=== PATIENT | female | born 1940 | race Caucasian/White ===

== ENCOUNTER → 2017-12-23 09:46 | Outpatient (CLI) | payer MEDICARE, OTHER, SELFPAY ==
--- NOTE | 2017-12-23 | DI.MRI.S_ITS ---
PROCEDURE: MR LUMBAR SPINE WO CON INDICATIONS: LUMBAR SPINE PAIN TECHNIQUE: Noncontrast sagittal T1 spin echo and T2 fast echo, sagittal STIR, axial T1 and T2 fast spin echo through the lumbar spine. In cases with scoliosis, additional coronal T2 fast spin echo may be performed. COMPARISON: [facility], CR, XR LUMBAR SPINE WITH OBLIQUES, 12/12/2017, 9:44. [facility], CT, CHEST/ABD/PEL WITH CONTRAST, 08/17/2017, 11:08. [facility], MR, L-SPINE WITHOUT CONTRAST, 03/16/2012, 19:48. FINDINGS: Image quality: Excellent. Alignment and Curvature: There is normal bony alignment. Bone Marrow: T12 inferior endplate compression fracture with associated marrow edema, which appears new since 08/17/17 although may have been present to some degree on the prior radiographs from 12/04/17. Please correlate clinically Spinal Cord: Conus medullaris terminates at the L1 level. Visualized cord demonstrates normal signal and size. Paraspinous Soft Tissues: T2 hyperintense cyst involving the right kidney, as before. T12-L1 central disc protrusion with mild canal narrowing which is slightly progressed. Mild bilateral foraminal stenosis which is unchanged. L1-L2: Broad-based posterior disc bulge and bilateral facet arthropathy. Mild canal narrowing. Mild bilateral foraminal stenoses, no interval change. L2-L3: Broad-based posterior disc bulge and bilateral facet arthropathy. Mild canal stenosis. Mild bilateral foraminal stenoses which are grossly unchanged. L3-L4: Broad-based posterior disc bulge bilateral facet arthropathy, mild canal narrowing. Mild to moderate right greater than left foraminal stenoses with unchanged appearance. L4-L5: Broad-based posterior disc bulge bilateral facet arthropathy. Minimal canal narrowing. Mild bilateral foraminal stenoses, grossly unchanged appearance. L5-S1: Mild broad-based disc bulge bilateral facet arthropathy. No definite canal stenosis. Mild bilateral foraminal stenoses. IMPRESSION: T12 inferior endplate compression fracture, probably acute/subacute in age. No definite change in vertebral body height loss since 12/12/17. Recommend clinical correlation. Slight progression in T12-L1 central canal narrowing. Otherwise, grossly unchanged examination since 03/16/12 as above. Dictated by: Kevin Barclay M.D. on 12/23/2017 at 12:31 Approved by: Kevin Barclay M.D. on 12/23/2017 at 12:46
== END ==
PROVIDERS: Family Provider Family Medicine; PCP Family Medicine; Visit Provider Physical Medicine & Rehabilitation Pain Medicine
DX: S22.089A Unspecified fracture of T11-T12 vertebra, initial encounter for closed fracture (principal); M48.05 Spinal stenosis, thoracolumbar region; M51.26 Other intervertebral disc displacement, lumbar region; M51.27 Other intervertebral disc displacement, lumbosacral region; N28.1 Cyst of kidney, acquired
CPT/HCPCS: 72148

== ENCOUNTER → 2018-03-17 11:12 | Outpatient (CLI) | payer MEDICARE, OTHER, SELFPAY ==
--- NOTE | 2018-03-17 11:21 | DI.CT.S_ITS ---
PROCEDURE: CT ANGIO NECK INDICATIONS: RIGHT CAROTID BRUIT TECHNIQUE: After the administration of intravenous contrast, 1.5 mm axial sections acquired from the aortic arch to the [place] of [place]. Maximum intensity projection (MIP) reformats were then performed. COMPARISON: None. FINDINGS: Image quality: Excellent. Carotid system: The great vessels demonstrate a conventional anatomy as they arise from the aortic arch. The origins of the common carotid arteries appear patent. The common carotid arteries demonstrate normal calibers and courses. There are scattered right carotid bifurcation calcified plaque. No definite significant, greater than 50% stenosis is seen. Remaining internal carotid arteries demonstrate normal caliber and course. Contrast opacification of right paravertebral collaterals Posterior circulation: The origins of the vertebral arteries appear patent. The more superior portions of the vertebral arteries demonstrate normal course and caliber. They join to form a normal appearing basilar artery. Soft tissues: Visualized neck soft tissues demonstrate no suspicious abnormalities. Thyroid gland contains a questionable 5 mm hypodense lesion in the left lobe, although limited evaluation given associated adjacent streak artifact from contrast bolus. Bones: No suspicious bony lesions. Reversal of the normal cervical lordosis and multilevel mid cervical disc degeneration and facet arthropathy. IMPRESSION: No evidence of hemodynamically significant ICA stenosis. Mild right carotid bifurcation atherosclerosis. Possible 5 mm hypodense lesion in the left lobe of the thyroid. Further assessment with dedicated thyroid ultrasound could be performed as clinically warranted. Any quantitative stenosis measurements were performed using the NASCET criteria. Dictated by: Kevin Barclay M.D. on 03/17/2018 at 13:15 Approved by: Kevin Barclay M.D. on 03/17/2018 at 13:24
[2018-03-17 11:42] LABS: BUN Creatinine Ratio 21.4 (6-22); Blood Urea Nitrogen 15 mg/dL (7-17); Calcium 9.5 mg/dL (8.4-10.2); Carbon Dioxide 31 mmol/L (22-32); Chloride 104 mmol/L (98-107); Estimated Glomerular Filt Rate > 60.0 mL/min (>60); Glucose 94 mg/dL (80-110); HEMOLYSIS < 15 (0-50); Potassium 4.2 mmol/L (3.4-5.1); Sodium 145 mmol/L (137-145)
== END ==
PROVIDERS: Family Provider Family Medicine; PCP Family Medicine; Visit Provider Internal Medicine Cardiovascular Disease
DX: I65.21 Occlusion and stenosis of right carotid artery (principal); R09.89 Other specified symptoms and signs involving the circulatory and respiratory systems
CPT/HCPCS: 36415; 70498; 80048; Q9967

== ENCOUNTER → 2018-04-21 17:45 | Outpatient (REF) | payer MEDICARE, OTHER, SELFPAY | LOC: LAB 17:45 | PROVIDERS: Family Provider Family Medicine; PCP Family Medicine; Visit Provider Physician Assistant | DX: Z48.817 Encounter for surgical aftercare following surgery on the skin and subcutaneous tissue (principal); Z48.02 Encounter for removal of sutures | CPT/HCPCS: 87070; 87075; 87205 ==

== ENCOUNTER 2018-05-15 10:12 | Day surgery (SDC) | payer MEDICARE, OTHER, SELFPAY ==
[2018-05-15 10:20] VITALS: BP 140/85; PULSE 92; RESP 16; TEMP 36.2; O2SAT 96; BMI 33.2
[2018-05-15] MEDS: MIDAZOLAM 5 MG/5 ML VIAL IV (10:50)
[2018-05-15] MEDS: fentaNYL 250 MCG/5 ML INJ IV (10:51)
[2018-05-15 11:02] VITALS: BP 151/76; PULSE 82; RESP 14; TEMP 36.5; O2SAT 94
[2018-05-15 11:07] VITALS: BP 149/82; PULSE 93; RESP 13; O2SAT 96
[2018-05-15 11:23] VITALS: BP 136/85; PULSE 79; RESP 15; TEMP 36.6; O2SAT 96
--- NOTE | 2018-05-15 11:23 | SUR.PHASEII ---
TOLERATING JUICE, COFFEE, AND CRACKERS.
--- NOTE | 2018-05-15 11:24 | SUR.PHASEII ---
TOLERATING JUICE, COFFEE, AND CRACKERS
--- NOTE | 2018-05-15 13:49 | OP_ITS ---
DATE OF SERVICE: 05/15/2018 PREOP DIAGNOSIS: History of colon cancer with resection. POSTOP DIAGNOSES: 1. Postoperative right hemicolectomy. 2. Normal colon up to the anastomosis from the anal verge to the right colon anastomosis. SURGEON: Ezio Somers MD DESCRIPTION OF PROCEDURE: The patient was properly identified during surgical pause, given conscious sedation, 100 of fentanyl and 2 of Versed. Flexible fiberoptic colonoscope inserted transanally to the anastomosis. The remaining colon is very healthy. No tumors. No polyps. No diverticulosis. No ulcerations. The areas were photographed. Procedure was very well tolerated. [place] - Shannan/yu doc#: [id number]/job#: [id number] dd: 05/15/2018 11:04:00 dt: 05/15/2018 13:44:00 DICTATING MD/COPIES TO: Ezio Somers MD COPIES MNE: CAM
--- NOTE | 2018-05-16 07:48 | HP_ITS ---
DATE OF SERVICE: 05/15/2018 PREOPERATIVE HISTORY AND PHYSICAL HISTORY OF PRESENT ILLNESS: Coming in for colonoscopy today. A 77-year-old white female patient who has history of colon cancer. Says two-thirds of her colon was removed. She doesn't know if it was the right or left side. She had stage III colon cancer, however. She is coming in for followup colonoscopy. She's asymptomatic. No melena. No hematochezia. OTHER PAST SURGICAL HISTORY: She's had some minor foot surgery. She's also had a right total knee. Denies diabetes, heart disease, or hypertension. MEDICATIONS: Currently takes Celebrex, nonsteroidals, NSAIDs occasionally. She is also on ranitidine, AcipHex, eyedrops, Lipitor, and a baby aspirin daily. REVIEW OF SYSTEMS: System review is really negative for chest pain or unusual shortness of breath. GI is as mentioned in HPI. negative. NEUROLOGIC: No strokes. PHYSICAL EXAMINATION GENERAL: She is alert and oriented. VITAL SIGNS: Her blood pressure is 140/85. Heart rate 92. HEENT: Ears, nose, and throat are normal. NECK: No adenopathy. LUNGS: Distant breath sounds. No rales or wheezes. HEART: Regular rhythm. No murmur. ABDOMEN: Soft. No organomegaly. No masses. RECTAL: Exam will be done at the time of colonoscopy. DIAGNOSIS: History of colon cancer, stage III. [place] - /yogesh/yu doc#: [id number]/job#: [id number] dd: 05/15/2018 10:43:00 dt: 05/15/2018 13:33:00 DICTATING MD/COPIES TO: Ezio Somers MD COPIES MNE: CAM
== END 2018-05-15 11:36 | disposition home or self-care (01) ==
PROVIDERS: Surgery; Family Provider Family Medicine; PCP Family Medicine; Visit Provider Surgery
PROC: 0DJD8ZZ Inspection of Lower Intestinal Tract, Via Natural or Artificial Opening Endoscopic (ICD-10-PCS; CPT 45378; principal; 2018-05-15 11:45)
DX: Z85.038 Personal history of other malignant neoplasm of large intestine (principal); Z90.49 Acquired absence of other specified parts of digestive tract
CPT/HCPCS: G0105; J2250; J3010

== ENCOUNTER → 2018-07-03 08:48 | Outpatient (CLI) | payer MEDICARE, OTHER, SELFPAY ==
--- NOTE | 2018-07-03 | DI.CT.S_ITS ---
PROCEDURE: CT ABDOMEN PELVIS W CON INDICATIONS: ABDOMINAL PAIN,DIARRHEA,HYPERTENSION,ADENOCARCINOM, COLORECTAL CARCINOMA. TECHNIQUE: After the administration of oral and intravenous contrast, 5 mm thick sections acquired from the diaphragms to the symphysis. 5 mm thick coronal and sagittal reformats were performed. For radiation dose reduction, the following was used: automated exposure control, adjustment of mA and/or kV according to patient size. COMPARISON: [facility], CT, CHEST/ABD/PEL WITH CONTRAST, 08/17/2017, 11:08. [facility], CT, ABDOMEN/PELVIS WITH CONTRAST, 09/15/2015, 12:09. [facility], CT, ABDOMEN/PELVIS WITH CONTRAST, 02/21/2015, 10:07. FINDINGS: Image quality: Excellent. ABDOMEN: Lung bases: Lung bases are clear. Heart size is normal. There is a moderate size hiatal hernia behind the heart. Several surgical clips in this area are again noted. Solid organs: Liver is normal in size and enhancement. Gallbladder appears normal. Biliary system is non-dilated. Pancreas enhances normally. Spleen is normal in size and enhancement. No adrenal nodules. Kidneys are normal in size and enhancement, without hydronephrosis. Peritoneum and bowel: Stomach, small bowel, and colon loops are normal in caliber and wall thickness. No free fluid or air. Nodes and vessels: No retroperitoneal or mesenteric adenopathy. Aorta and inferior vena cava are normal in caliber. Miscellaneous: No ventral hernias. PELVIS: Genitourinary: Bladder wall thickness is normal. Miscellaneous: No inguinal hernias or adenopathy. Bones: No suspicious bony lesions. No vertebral body compression fractures. IMPRESSION: There is a reported history of colorectal carcinoma, and no mass lesion involving the visualized colon or adenopathy is seen. No distant metastatic disease is found. Moderate-sized hiatal hernia behind the heart, several surgical clips in the area of the EG junction and immediately below. These were previously present. Overall there is no sign of metastatic disease. Dictated by: Timur Wall M.D. on 07/03/2018 at 13:21 Approved by: Timur Wall M.D. on 07/03/2018 at 13:28
== END ==
PROVIDERS: Family Provider Family Medicine; PCP Family Medicine; Visit Provider Family Medicine
DX: C19 Malignant neoplasm of rectosigmoid junction (principal); R10.9 Unspecified abdominal pain; R19.7 Diarrhea, unspecified; I10 Essential (primary) hypertension; K44.9 Diaphragmatic hernia without obstruction or gangrene
CPT/HCPCS: 74177; Q9967

== ENCOUNTER 2018-08-16 09:04 | Day surgery (SDC) | payer MEDICARE, OTHER, SELFPAY ==
[2018-08-15 10:55] VITALS: BMI 35.3
[2018-08-16] VITALS (8 sets, daily range): BP systolic 109–143; BP diastolic 63–78; PULSE 54–78; RESP 9–20; TEMP 36.1–36.5; O2SAT 2–98; BMI 35.3
[2018-08-16] MEDS: LACTATED RINGERS 1,000 ML 42 ML IV (09:30)
[2018-08-16] MEDS: CEFAZOLIN 2 GM/100 ML FROZ.PIGGY IV (10:00)
--- NOTE | 2018-08-16 10:18 | SUR.OPER ---
Supine on padded OR bed, head on pillow, arms secured on padded arm boards at <90 degrees abduction, legs uncrossed, safety belt at thigh, tape over blanket over lower legs.
[2018-08-16] MEDS: LIDOCAINE 1% W/EPI INJ 20 ML INJ (10:22)
[2018-08-16] MEDS: BUPIVACAINE 0.5% (PF) VIAL 30 ML INJ (10:23)
[2018-08-16] MEDS: fentaNYL 100 MCG/2 ML INJ 50 MCG IV (10:59)
--- NOTE | 2018-08-16 11:01 | PM.PREOP ---
Pre-operative Note Interval Note History & Physical reviewed/Exam performed by Physician: Yes Changes to H&P: No
--- NOTE | 2018-08-16 11:01 | PM.OP.1 ---
Operative Date/Time/Diagnoses Date of procedure: 08/16/18 Time of procedure: 11:01 Pre-op diagnosis: Painful abdominal mass Post-op diagnosis: same Procedure & Clinicians Procedure: Wound exploration with repair of small anterior rectus hernia and removal of a single stitch at the edge of the existing mesh Same procedure as scheduled: Yes Indications: painful abdominal mass Surgeon: Angelia Ramirez Click Yes if Unassisted: Yes Anesthesia Type: General ( Dr. Keith) Operative Notes Findings: 2 cm opening in the anterior oblique aponeurosis. Heaping of the existing hernia mesh at the exact site of the patient's pain and tenderness. It is well incorporated there and there is no recurrent herniation. A single Prolene stitch was removed as well as 1 visible clip. The remainder of the mesh was left in place Closure Type: primary Specimen(s): none sent Estimated Blood Loss (mL): 5 Procedure in detail: After obtaining informed consent, the patient brought to the operating room and placed in supine position on the operating table. Following successful induction of general endotracheal anesthesia, appropriate padding of all bony prominences, and placement of appropriate monitors, the abdomen is prepped and draped in the standard surgical fashion. A time-out was held per SCOAP protocol. Following infiltration with local anesthetic to create a field block, an incision was created directly over the spot marked by the patient as being painful for her. This was carried down through the skin and subcutaneous tissue. At the base of this incision there were 2 findings. at the spot of the mass the patient is feeling, is a heaped up area of scarred in mesh. This is well incorporated from her prior hernia repair. There was a visible Prolene stitch as well as 1 clip that I was able to identify and removed from the site in hopes that it would provide some pain relief if it was the source of nerve entrapment. The mesh was not removed but was left in place. Just lateral to this mesh lump, there was a 1/2 cm opening in the external oblique aponeurosis. This was reapproximated with interrupted Vicryl sutures. A tiny amount of adipose tissue was herniating through this location Prior to the repair. No other abnormalities or changes in the abdominal wall were appreciated. The wound was localized with additional anesthetic. It was then closed in layers with Vicryl and Monocryl suture. All sponge, needle, and instrument counts were correct at the conclusion of the case. The patient was allowed awaken from anesthesia without difficulty and taken to the postanesthesia care unit in good condition. Complications: none Condition: stable Disposition: PACU Plan for aftercare: 1. Discharge to home 2. Follow up with me in my office in 2 weeks. 3. If this does not improve the patient's discomfort we will consider physical therapy.
[2018-08-16] MEDS: OXYCODONE/ACETAMINOPHEN 5/325 TABLET 1 TAB PO (11:04)
--- NOTE | 2018-08-16 11:16 | SUR.PHASEI ---
Pain 3/10, tolerating PO well. VSS stable, report given.
== END 2018-08-16 11:40 | disposition home or self-care (01) ==
PROVIDERS: Family Provider Family Medicine; PCP Family Medicine; Visit Provider Surgery
PROC: (CPT 49560; principal; 2018-08-16 10:45)
DX: K43.0 Incisional hernia with obstruction, without gangrene (principal); Z18.89 Other specified retained foreign body fragments
CPT/HCPCS: 49560; J0690; J1100; J2405; J2704; J3010

== ENCOUNTER → 2018-10-16 09:52 | Outpatient (CLI) | payer MEDICARE, OTHER, SELFPAY ==
[2018-10-16 10:55] LABS: Add Manual Diff / Slide Review NO; Basophils Absolute Auto 0 /uL (0-100); Basophils Percent Auto 0.7 % (0-2); Eosinophils Absolute Auto 0 /uL (0-450); Eosinophils Percent Auto 0.8 % (2-4); Hematocrit 41.8 % (36-46); Lymphocytes Absolute Auto 1900 /uL (1100-4500); Lymphocytes Percent Auto 31.8 % (25-40); Mean Corpuscular HGB Conc 33.5 % (30-36); Mean Corpuscular Hemoglobin 29.9 PG (26-34); Mean Corpuscular Volume 89.1 fL (80-100); Monocytes Absolute Auto 700 /uL (0-900); Monocytes Percent Auto 10.9 % (3-14); Neutrophils Absolute Auto 3300 /uL (1500-7000); Neutrophils Percent Auto 55.8 % (50-75); Platelet Count 334 X10^3/uL (150-400); Red Blood Cell Count 4.69 X10^6/uL (4.0-5.2); Red Cell Distribution Width 13.5 % (11.6-14.8)
[2018-10-16 11:22] LABS: Alanine Aminotransferase 14 IU/L (9-52); Albumin 4.4 g/dL (3.5-5.0); Albumin Globulin Ratio 1.5 (1.0-2.8); Alkaline Phosphatase 103 U/L (38-126); Aspartate Aminotransferase 19 IU/L (14-36); BUN Creatinine Ratio 22.9 (6-22); Bilirubin Total 0.7 mg/dL (0.2-1.3); Blood Urea Nitrogen 16 mg/dL (7-17); Calcium 9.7 mg/dL (8.4-10.2); Carbon Dioxide 29 mmol/L (22-32); Chloride 100 mmol/L (98-107); Estimated Glomerular Filt Rate > 60.0 mL/min (>60); Glucose 97 mg/dL (80-110); HEMOLYSIS < 15 (0-50); Potassium 4.4 mmol/L (3.4-5.1); Sodium 139 mmol/L (137-145); Total Protein 7.4 g/dL (6.3-8.2)
[2018-10-16 11:51] LABS: Carcinoembryonic Antigen 0.6 ng/mL (0.1-3.0)
== END ==
PROVIDERS: Family Provider Family Medicine; PCP Family Medicine; Visit Provider Nurse Practitioner Gerontology
DX: D04.61 Carcinoma in situ of skin of right upper limb, including shoulder (principal); D04.4 Carcinoma in situ of skin of scalp and neck; R10.11 Right upper quadrant pain; K52.9 Noninfective gastroenteritis and colitis, unspecified; M48.54XA Collapsed vertebra, not elsewhere classified, thoracic region, initial encounter for fracture; I10 Essential (primary) hypertension; E78.00 Pure hypercholesterolemia, unspecified; K21.9 Gastro-esophageal reflux disease without esophagitis; Z85.038 Personal history of other malignant neoplasm of large intestine; Z85.3 Personal history of malignant neoplasm of breast
CPT/HCPCS: 36415; 80053; 82378; 85025

== ENCOUNTER → 2018-11-22 10:04 | Outpatient (CLI) | payer MEDICARE, OTHER, SELFPAY ==
--- NOTE | 2018-11-22 | DI.US.S_ITS ---
PROCEDURE: US CAROTID DOPPLER BI INDICATIONS: OCCLUSION AND STENOSIS OF RT CAROTID ARTERY TECHNIQUE: Color and pulse Doppler interrogation was performed of both carotid systems, with image documentation and velocity measurements. COMPARISON: [facility], US, US CAROTID BILATERAL, 04/04/2018, 9:12. FINDINGS: Stenosis calculations are based on SRU (Society of Radiologists in Ultrasound) criteria. Right side: Brachial blood pressure: 103/67 mm Hg. Common carotid artery peak systolic velocity: 51 cm/sec. Internal carotid artery peak systolic velocity: 144 cm/sec. Internal carotid artery end diastolic velocity: 41 cm/sec. External carotid artery peak systolic velocity: 103 cm/sec. ICA/CCA peak systolic ratio: 2.8. Hsieh scale imaging description: Mild scattered plaque. Percent internal carotid artery stenosis: 50-69% stenosis. Vertebral artery: Flow direction is antegrade. Left side: Brachial blood pressure: 107/65 mm Hg. Common carotid artery peak systolic velocity: 71 cm/sec. Internal carotid artery peak systolic velocity: 106 cm/sec. Internal carotid artery end diastolic velocity: 36 cm/sec. External carotid artery peak systolic velocity: 108 cm/sec. ICA/CCA peak systolic ratio: 1.5. Hsieh scale imaging description: Mild scattered plaque. Percent internal carotid artery stenosis: Facet 50%. Vertebral artery: Flow direction is antegrade. IMPRESSION: 1. 50-69% right internal carotid artery stenosis which appears decreased from prior examination. 2. Less than 50% stable left internal carotid artery stenosis. Dictated by: Bakari Tellez A Interpreted: Chanel Dunaway MD on 11/23/2018 at 15:30 Approved by: Chanel Dunaway M.D. on 11/23/2018 at 17:17
== END ==
PROVIDERS: Family Provider Family Medicine; PCP Family Medicine; Visit Provider Psychiatry & Neurology Neurology
DX: I65.23 Occlusion and stenosis of bilateral carotid arteries (principal)
CPT/HCPCS: 93880

== ENCOUNTER → 2019-07-03 10:07 | Outpatient (CLI) | payer MEDICARE, OTHER, SELFPAY ==
--- NOTE | 2019-07-03 | DI.US.S_ITS ---
PROCEDURE: US CAROTID DOPPLER BI INDICATIONS: OCCLUSION AND STENOSIS OF CAROTID ARTERY TECHNIQUE: Color and pulse Doppler interrogation was performed of both carotid systems, with image documentation and velocity measurements. COMPARISON: [facility], , CAROTID DOPPLER BI, 11/22/2018, 10:41. FINDINGS: Stenosis calculations are based on SRU (Society of Radiologists in Ultrasound) criteria. Right side: Brachial blood pressure: 150/73 mm Hg. Common carotid artery peak systolic velocity: 80 cm/sec. Internal carotid artery peak systolic velocity: 330 cm/sec. Internal carotid artery end diastolic velocity: 111 cm/sec. External carotid artery peak systolic velocity: 89 cm/sec. ICA/CCA peak systolic ratio: 4.19. Hsieh scale imaging description: Calcified plaque at the bifurcation Percent internal carotid artery stenosis: 70% to near occlusion. Vertebral artery: Flow direction is antegrade. Left side: Brachial blood pressure: 109/61 mm Hg. Common carotid artery peak systolic velocity: 88 cm/sec. Internal carotid artery peak systolic velocity: 104 cm/sec. Internal carotid artery end diastolic velocity: 37 cm/sec. External carotid artery peak systolic velocity: 98 cm/sec. ICA/CCA peak systolic ratio: 1.18. Hsieh scale imaging description: Calcified plaque at the distal common carotid bifurcation Percent internal carotid artery stenosis: Less than 50%. Vertebral artery: Flow direction is antegrade. IMPRESSION: 70% to near occlusion high-grade stenosis of the right ICA, progressed since the prior study from 11/22/18. Less than 50% left ICA stenosis, as before Dictated by: Kevin Barclay M.D. on 07/03/2019 at 17:38 Approved by: Kevin Barclay M.D. on 07/03/2019 at 17:41
[2019-07-03 11:16] LABS: Add Manual Diff / Slide Review NO; Basophils Absolute Auto 0 /uL (0-100); Basophils Percent Auto 0.9 % (0-2); Eosinophils Absolute Auto 100 /uL (0-450); Eosinophils Percent Auto 1.6 % (2-4); Hematocrit 40.3 % (36-46); Hemoglobin 13.6 g/dL (12.0-16.0); Lymphocytes Absolute Auto 1400 /uL (1100-4500); Lymphocytes Percent Auto 27.6 % (25-40); Mean Corpuscular HGB Conc 33.8 % (30-36); Mean Corpuscular Hemoglobin 30.5 PG (26-34); Mean Corpuscular Volume 90.3 fL (80-100); Monocytes Absolute Auto 400 /uL (0-900); Monocytes Percent Auto 7.5 % (3-14); Neutrophils Absolute Auto 3100 /uL (1500-7000); Neutrophils Percent Auto 62.4 % (50-75); Platelet Count 296 X10^3/uL (150-400); Red Blood Cell Count 4.46 X10^6/uL (4.0-5.2); Red Cell Distribution Width 13.3 % (11.6-14.8)
[2019-07-03 11:24] LABS: Alanine Aminotransferase 18 IU/L (<35); Albumin 4.3 g/dL (3.5-5.0); Albumin Globulin Ratio 1.5 (1.0-2.8); Alkaline Phosphatase 101 U/L (38-126); Aspartate Aminotransferase 27 IU/L (14-36); BUN Creatinine Ratio 15.7 (6-22); Bilirubin Total 0.7 mg/dL (0.2-1.3); Blood Urea Nitrogen 11 mg/dL (7-17); Calcium 9.4 mg/dL (8.4-10.2); Carbon Dioxide 28 mmol/L (22-32); Chloride 101 mmol/L (98-107); Cholesterol 185 mg/dL (140-199); Estimated Glomerular Filt Rate > 60.0 mL/min (>60); Globulin 2.9 g/dL (1.7-4.1); Glucose 102 mg/dL (80-110); HDL Cholesterol 59 mg/dL (40-60); HEMOLYSIS < 15 (0-50); LDL Cholesterol Calculated 102 mg/dL (<100); Sodium 138 mmol/L (137-145); Total Protein 7.2 g/dL (6.3-8.2); Triglycerides 119 mg/dL (35-150)
[2019-07-03 12:14] LABS: TSH w/ Reflex to FT4 2.53 uIU/mL (0.47-4.68)
== END ==
PROVIDERS: Family Provider Psychiatry & Neurology Neurology; PCP Family Medicine; Visit Provider Family Medicine
DX: I65.23 Occlusion and stenosis of bilateral carotid arteries (principal); K21.9 Gastro-esophageal reflux disease without esophagitis; D50.9 Iron deficiency anemia, unspecified; R10.9 Unspecified abdominal pain; I10 Essential (primary) hypertension; E78.5 Hyperlipidemia, unspecified
CPT/HCPCS: 36415; 80053; 80061; 84443; 85025; 93880

== ENCOUNTER → 2020-05-13 13:48 | Outpatient (CLI) | payer MEDICARE, OTHER, SELFPAY ==
--- NOTE | 2020-05-13 13:50 | DI.US.S_ITS ---
LIMITED ULTRASOUND OF LEFT BREAST AND AXILLA: 05/13/2020 CLINICAL: Palpable left breast lump. Comparison is made to exams dated: 05/13/2020 mammogram - [facility], 08/12/2018 mammogram, 08/08/2017 mammogram, 06/24/2016 mammogram - [facility], 12/31/2015 mammogram - [facility], and 07/03/2015 mammogram - [facility]. Color flow and real-time ultrasound of the left breast 4 o'clock, 10 o'clock, and axilla regions were performed on the areas of interest. There is a 0.6 cm x 0.4 cm x 0.4 cm oval mass with an indistinct margin in the left breast at 10 o'clock anterior depth. This oval mass is hypoechoic and hyperechoic but of mixed echogenicity with posterior acoustic shadowing. This correlates as palpated. There are related calcifications. Color flow imaging demonstrates that there is no vascularity present. There also is a benign irregular post-surgical scar with an indistinct margin in the left breast at 4 o'clock posterior depth. This irregular post-surgical scar is hypoechoic with posterior acoustic shadowing and demonstrates linear extension to the skin. This correlates with mammography findings. Color flow imaging demonstrates that there is no vascularity present. No enlarged lymph nodes identified in the left axilla. IMPRESSION: SUSPICIOUS OF MALIGNANCY The 0.6 cm x 0.4 cm x 0.4 cm oval mass in the left breast at 10 o'clock anterior depth is suspicious of malignancy. An ultrasound guided biopsy is recommended. The irregular post-surgical scar in the left breast at 4 o'clock posterior depth is benign. The findings were discussed with and the results were reviewed with the patient at the conclusion of the study by Dr. Lopez. This exam was interpreted at Station ID: [id number]. Electronically Signed By: Nick aguirre/:05/13/2020 16:09:20 letter sent: Biopsy Required Ultrasound BI-RADS: 4 Suspicious for malignancy
--- NOTE | 2020-05-13 13:50 | DI.MG.S_ITS ---
BILATERAL DIGITAL DIAGNOSTIC MAMMOGRAM 3D/2D POST LUMPECTOMY: 05/13/2020 CLINICAL: Left breast lump. Comparison is made to exams dated: 08/12/2018 mammogram, 08/08/2017 mammogram, and 06/24/2016 mammogram - [facility]. There are scattered fibroglandular elements in both breasts. There is a new oval equal density asymmetry with an obscured and indistinct margin in the left breast at 11 o'clock in the retroareolar region. This correlates as palpated. There also is an irregular equal density asymmetry with an indistinct margin in the left breast at 3 o'clock posterior depth. This correlates with surgery. There is architectural distortion, a post-surgical scar, and trabecular thickening associated with the asymmetry. No other significant masses, calcifications, or other findings are seen in either breast. IMPRESSION: INCOMPLETE: NEEDS ADDITIONAL IMAGING EVALUATION The new oval equal density asymmetry in the left breast at 11 o'clock in the retroareolar region is indeterminate. An ultrasound is recommended. The irregular equal density asymmetry in the left breast at 3 o'clock posterior depth likely represents a post-surgical scar and is indeterminate. An ultrasound is recommended. Ultrasound will be performed immediately following the current exam. This exam was interpreted at Station ID: [id number]. NOTE: For mammograms, a report in lay terms will be sent to the patient. Approximately 15% of breast malignancies will not be visualized mammographically. In the management of a palpable breast mass, a negative mammogram must not discourage biopsy of a clinically suspicious lesion. Electronically Signed By: Nick Ludwig M.D. ddp/:05/13/2020 15:50:51 ACR BI-RADS Category 0: Incomplete [id number]
== END ==
PROVIDERS: Family Provider Psychiatry & Neurology Neurology; PCP Family Medicine; Referring Provider Internal Medicine Hematology & Oncology; Visit Provider Internal Medicine Hematology & Oncology
DX: R92.8 Other abnormal and inconclusive findings on diagnostic imaging of breast (principal); N63.22 Unspecified lump in the left breast, upper inner quadrant; L90.5 Scar conditions and fibrosis of skin; Z85.3 Personal history of malignant neoplasm of breast
CPT/HCPCS: 76642; 77066; G0279

== ENCOUNTER → 2020-05-27 08:52 | Outpatient (CLI) | payer MEDICARE, OTHER, SELFPAY ==
--- NOTE | 2020-05-27 | PATH_ITS ---
[facility] Accession Number: [id number] . 01 Material submitted: . breast - LEFT BREAST MASS . 02 Diagnosis: Left Breast, Mass, Core Needle Biopsies: 1. Negative for atypical ductal hyperplasia, in situ, or invasive carcinoma. 2. Benign breast tissue with fibrosis, foreign body reaction and reactive changes. Please see comment. 3. Microcalcifications present in association with nonneoplastic tissue. MRV 05/29/2020 1350 Local . 02 Comment: As part of routine quality control lab tech, this case was also reviewed by Dr. Sarkar, who agrees with the interpretation. These reactive features could be compatible with resolving fat necrosis, or changes related to prior procedure or treatment. . 02 Electronically signed: . Indira Tilley MD, Pathologist NPI- [id number] . 01 Gross description: . Received in one formalin-filled container, labeled with the patient's name and designated left breast mass, are three yellow-lisa to lisa-conte, cylindrical-shaped portions of tissue which range in size from 0.7 x 0.1 x 0.1 cm to 1.2 x 0.2 x 0.2 cm. The specimen is entirely submitted in one cassette. Collection date per container: 05/27/20. Possible collection time per requisition: 10:02. Possible total fixation time: Approximately 17 hours. ([id number]) /FRAllison 05/28/2020 0226 Local . 02 Pathologist provided ICD-10: N63.20 . 02 CPT . 065251 Performed at: 01 [facility] [address] [place] [address] [id number] MD Nick Ahumada MD Phone: [phone] Performed at: 02 [facility] [place] [address] [place] [address] [id number] MD Indira Tilley MD Phone: [phone]
--- NOTE | 2020-05-27 | DI.US.S_ITS ---
PROCEDURE: US BREAST NDL CORE BIOPSY LT COMPARISON: None. INDICATIONS: LEFT BREAST MASS FINDINGS: IMPRESSION: Dictated by: Keyanna Perez MD, PhD on 05/28/2020 at 15:56 Approved by: Keyanna Perez MD, PhD on 05/28/2020 at 15:57
--- NOTE | 2020-05-27 | DI.MG.S_ITS ---
UNILATERAL LEFT DIGITAL DIAGNOSTIC MAMMOGRAM POST LUMPECTOMY POST-EXCISIONAL BIOPSY: 05/27/2020 CLINICAL: Left breast mass. Comparison is made to exams dated: 05/13/2020 mammogram - [facility], 08/12/2018 mammogram, and 08/08/2017 mammogram - [facility]. There are scattered fibroglandular elements in left breast. There is a marker clip in the appropriate position in the left breast at 11 o'clock anterior depth. This marker clip placement is at the biopsy site. IMPRESSION: POST PROCEDURE MAMMOGRAM FOR MARKER PLACEMENT There was a successful marker clip placement in the left breast anterior depth. This exam was interpreted at Station ID: [id number]. NOTE: For mammograms, a report in lay terms will be sent to the patient. Approximately 15% of breast malignancies will not be visualized mammographically. In the management of a palpable breast mass, a negative mammogram must not discourage biopsy of a clinically suspicious lesion. Electronically Signed By: Keyanna ramírez/kiara:05/27/2020 10:41:28 ACR BI-RADS Category Post-procedure mammogram for marker placement
--- NOTE | 2020-05-27 09:13 | DI.US.S_ITS ---
Patient Name: RAMO LOUIS date: 1940 Sex: F Date: 05/27/2020 10:03 At the request of: MARNIE PERKINS Procedure: US breast ndl core biopsy LT ULTRASOUND GUIDED BIOPSY LEFT BREAST WITH MARKING DEVICE INSERTED: 05/27/2020 CLINICAL: Left breast mass. PATIENT CONSENT: Risks (minor bleeding, infection, vasovagal reaction and repeat procedure), benefits and alternatives were explained to the patient and written informed consent was obtained. Correlation is made to exams dated: 05/13/2020 ultrasound, 05/13/2020 mammogram - [facility], 08/12/2018 mammogram, 08/08/2017 mammogram, 06/24/2016 mammogram - [facility], and 12/31/2015 mammogram - [facility]. An ultrasound guided biopsy using real-time ultrasound was performed for the mass located in the left breast at 10 o'clock anterior depth. The skin was prepped in the usual manner. A 6 gauge biopsy needle was placed adjacent to the abnormality under ultrasound guidance. Once the needle was documented to be in the correct location, three specimens were obtained using an Achieve automated firing device. A Celero clip was inserted into the biopsy cavity. Post procedure imaging demonstrates the location device at the targeted area. The specimens were sent to the laboratory for pathological analysis. IMPRESSION: ULTRASOUND GUIDED BIOPSY BENIGN Ultrasound guided biopsy of the mass in the left breast at 10 o'clock anterior depth was successful. Pathology indicates benign fibrosis, foreign body reaction, reactive changes compatible with resolving fat necrosis, or changes related to prior procedure or treatment. Microcalcifications are present. Pathology results are concordant with imaging findings. Recommend clinical follow up for persistent or worsening symptoms, or development of any clinically suspicious findings. Recommend screening mammogram in one year. This exam was interpreted at Station ID: [id number]. Keyanna Rowell M.D. [facility],[place]/:06/10/2020 07:29:15
== END ==
PROVIDERS: Family Provider Psychiatry & Neurology Neurology; PCP Family Medicine; Referring Provider Internal Medicine Hematology & Oncology; Visit Provider Internal Medicine Hematology & Oncology
DX: N60.32 Fibrosclerosis of left breast (principal); Z85.3 Personal history of malignant neoplasm of breast
CPT/HCPCS: 19083; 77065

== ENCOUNTER → 2021-09-23 13:06 | Outpatient (CLI) | payer MEDICARE, OTHER, SELFPAY ==
--- NOTE | 2021-09-23 | DI.MRI.S_ITS ---
PROCEDURE: MR SHOULDER LT WO CON INDICATIONS: LT SHOULDER OSTEOARTHRITIS. PAIN TECHNIQUE: Noncontrast oblique coronal T2 fast spin echo with fat saturation, oblique sagittal T1 spin echo and T2 fast spin echo with fat saturation, axial T1 spin echo and T2 fast spin echo with fat saturation through the shoulder. COMPARISON: [facility], MR, MR SHOULDER RT WO CON, 09/23/2021, 13:22. FINDINGS: Image quality: Excellent. Rotator cuff: Moderate supraspinatus tendinopathy with small partial, articular surface and interstitial tears. Mild to moderate infraspinatus tendinopathy with interstitial tear. Mild to moderate subscapularis tendinopathy with partial, articular surface tear. Sagittal images demonstrate grade 2 supraspinatus muscle atrophy. Bones and bursae: No evidence of fracture. T2 hyperintense/T1 hypointense signal is seen within the glenoid, compatible with fibrocystic change. Signal heterogeneity and thinning of the hyaline cartilage. Mild acromioclavicular joint degeneration with T2 hyperintense signal within the articulation. No os acromiale. Small subacromial-subdeltoid bursal fluid is present. Capsule and soft tissues: Labrum deficiency of the posterior labrum, which may reflect degenerative change/tear. The long head of the biceps tendon demonstrates normal location and morphology. A 3.2 x 7.8 mm intra-articular body is seen in the superior subscapular recess. The coracohumeral ligament is normal in thickness. IMPRESSION: 1. Moderate supraspinatus tendinopathy with small partial, articular surface and interstitial tears. 2. Mild to moderate infraspinatus tendinopathy with interstitial tear. 3. Mild to moderate subscapularis tendinopathy with partial, articular surface tear. 4. Grade 2 atrophy of the supraspinatus muscle. 5. Mild subacromial/subdeltoid bursitis. 6. Fibrocystic change of the glenoid. 7. Mild AC joint degeneration. 8. Intra-articular body within the superior subscapular recess. Dictated by: Kike Herring M.D. on 09/23/2021 at 15:45 Approved by: Kike Herring M.D. on 09/23/2021 at 15:54
--- NOTE | 2021-09-23 | DI.MRI.S_ITS ---
PROCEDURE: MR SHOULDER RT WO CON INDICATIONS: LT SHOULDER OSTEOARTHRITIS;RT SHOULDER CUFF TEAR TECHNIQUE: Noncontrast oblique coronal T2 fast spin echo with fat saturation, oblique sagittal T1 spin echo and T2 fast spin echo with fat saturation, axial T1 spin echo and T2 fast spin echo with fat saturation through the shoulder. COMPARISON: [facility], MR, SHOULDER WITHOUT CONTRAST, 07/21/2012, 8:50. FINDINGS: Image quality: Some images are degraded by motion artifact. Rotator cuff: Full thickness of the supraspinatus tendon, measuring approximately 2.6 x 2.9 cm. Infraspinatus tendinopathy with interstitial and partial articular surface tears. Subscapularis tendinopathy without evidence of tear. Increased atrophy of the supraspinatus muscle, likely reflecting grade 2/3 atrophy. Bones and bursae: No evidence of fracture. 6.5 x 5.1 cm T2 hyperintense/T1 hypointense signal in the posterior glenoid, compatible with fibrocystic change. Mild to moderate acromioclavicular joint degeneration. No os acromiale. Subacromial-subdeltoid fluid, which may be related to the aforementioned rotator cuff tear. Capsule and soft tissues: Labrum appears intact. The long head of the biceps tendon demonstrates normal location and morphology. Glenohumeral joint effusion which extends into the superior subscapularis recess. The coracohumeral ligament is normal in thickness. IMPRESSION: 1. Full-thickness supraspinatus tendon tear as detailed above. 2. Infraspinatus tendinopathy with interstitial and partial articular surface tears. 3. Subscapularis tendinopathy without evidence of tear. 4. Interval increased atrophy of the supraspinatus muscle. 5. Glenohumeral joint effusion which extends into the superior subscapular recess. Dictated by: Kike Herring M.D. on 09/23/2021 at 15:21 Approved by: Kike Herring M.D. on 09/23/2021 at 15:30
== END ==
PROVIDERS: Family Provider Psychiatry & Neurology Neurology; PCP Family Medicine; Referring Provider Family Medicine; Visit Provider Family Medicine
DX: M75.121 Complete rotator cuff tear or rupture of right shoulder, not specified as traumatic (principal); M19.011 Primary osteoarthritis, right shoulder; M75.112 Incomplete rotator cuff tear or rupture of left shoulder, not specified as traumatic; M19.012 Primary osteoarthritis, left shoulder; M75.52 Bursitis of left shoulder
CPT/HCPCS: 73221

== ENCOUNTER → 2021-10-14 11:10 | Outpatient (CLI) | payer MEDICARE, OTHER, SELFPAY ==
[2021-10-14 12:40] LABS: Add Manual Diff / Slide Review NO; Basophils Absolute Auto 0 /uL (0-100); Basophils Percent Auto 0.6 % (0-2); Eosinophils Absolute Auto 100 /uL (0-450); Eosinophils Percent Auto 1.6 % (2-4); Hematocrit 40.6 % (36-46); Hemoglobin 13.5 g/dL (12.0-16.0); Lymphocytes Absolute Auto 2300 /uL (1100-4500); Lymphocytes Percent Auto 35.3 % (25-40); Mean Corpuscular HGB Conc 33.2 % (30-36); Mean Corpuscular Hemoglobin 28.9 PG (26-34); Mean Corpuscular Volume 87.2 fL (80-100); Monocytes Absolute Auto 600 /uL (0-900); Monocytes Percent Auto 9.4 % (3-14); Neutrophils Absolute Auto 3500 /uL (1500-7000); Neutrophils Percent Auto 53.1 % (50-75); Platelet Count 351 X10^3/uL (150-400); Red Blood Cell Count 4.65 X10^6/uL (4.0-5.2); Red Cell Distribution Width 13.6 % (11.6-14.8); White Blood Cell Count 6.6 X10^3/uL (4.5-11.0)
[2021-10-14 12:50] LABS: BUN Creatinine Ratio 19.5 (6-22); Blood Urea Nitrogen 17 mg/dL (7-17); Calcium 9.9 mg/dL (8.4-10.2); Carbon Dioxide 23 mmol/L (22-32); Chloride 107 mmol/L (98-107); Estimated Glomerular Filt Rate > 60 mL/min (>60); Glucose 61 mg/dL (80-110); HEMOLYSIS < 15 (0-50); Potassium 4.5 mmol/L (3.4-5.1); Sodium 139 mmol/L (137-145)
[2021-10-14 12:53] LABS: Hemoglobin A1C% w Est Avg Glu 5.5 % (4.0-6.0)
[2021-10-14 13:00] LABS: Appearance Urine UA CLOUDY; Bilirubin Urine UA 2+ (NEGATIVE); Color Urine UA YELLOW; Glucose Urine UA TRACE g/dL (Negative); Ketones Urine UA 1+ (NEGATIVE); Leukocyte Esterase Urine UA TRACE (NEGATIVE); Nitrite Urine UA NEGATIVE (Negative); Occult Blood Urine UA NEGATIVE (Negative); Protein Urine UA 2+ (Negative); Specific Gravity Urine UA >=1.030 (1.000-1.035)
[2021-10-14 13:16] LABS: Amorphous Sediment Urine 1+; Bacteria Urine Few (2-10); Culture Indicated Urine Specimen Cultured; Ictotest Urine Negative (Negative); Mucus Urine 1+ (Negative); RBC Urine None Seen (0-5/HPF); Squamous Epithelial Cell Urine 5-10 /HPF (0-5/HPF); WBC Urine 1-5/HPF (0-5/HPF)
== END ==
PROVIDERS: Family Provider Psychiatry & Neurology Neurology; PCP Family Medicine; Referring Provider Orthopaedic Surgery; Visit Provider Orthopaedic Surgery
DX: Z01.818 Encounter for other preprocedural examination (principal); R73.9 Hyperglycemia, unspecified; Z01.812 Encounter for preprocedural laboratory examination; N39.0 Urinary tract infection, site not specified
CPT/HCPCS: 36415; 80048; 81001; 83036; 85025; 87086; 93005

== ENCOUNTER → 2021-10-26 10:04 | Outpatient (CLI) | payer MEDICARE, OTHER, SELFPAY ==
[2021-10-26 13:34] LABS: COVID19 -Nasal RAPID Negative (Negative)
== END ==
PROVIDERS: Family Provider Psychiatry & Neurology Neurology; PCP Family Medicine; Visit Provider Family Medicine Sleep Medicine
DX: Z20.822 Contact with and (suspected) exposure to COVID-19 (principal)
CPT/HCPCS: 87635; C9803

== ENCOUNTER 2021-10-28 10:35 | Inpatient (IN) | payer MEDICARE, OTHER, SELFPAY ==
[2021-10-26 11:35] VITALS: BMI 30.2
[2021-10-28] VITALS (13 sets, daily range): BP systolic 90–136; BP diastolic 44–81; PULSE 84–123; RESP 12–22; TEMP 35.8–36.6; O2SAT 90–96; BMI 30.2
--- NOTE | 2021-10-28 06:00 | DI.RAD.S_ITS ---
PROCEDURE: XR SHOULDER RT 1V INDICATIONS: prosthesis placement TECHNIQUE: 1 view of the shoulder was acquired. COMPARISON: [facility], CR, XR SHOULDER 2+ VIEWS BILATERAL, 10/01/2021, 12:13. FINDINGS: Bones: On this postoperative study, right shoulder arthroplasty hardware has been placed. No significant postoperative complication can be seen. Soft tissues: Soft tissue postoperative changes are seen. The visualized lung demonstrates an unremarkable appearance. IMPRESSION: Normal postoperative examination. Dictated by: Michael Stahl M.D. on 10/28/2021 at 16:29 Approved by: Michael Stahl M.D. on 10/28/2021 at 16:30
[2021-10-28] MEDS: ACETAMINOPHEN 325 MG TABLET 975 MG PO (10:58)
[2021-10-28] MEDS: PREGABALIN 75 MG CAPSULE PO (10:59)
[2021-10-28] MEDS: LACTATED RINGERS 1,000 ML 42 ML IV ×2 (11:01→15:15)
--- NOTE | 2021-10-28 12:35 | SUR.PREOP ---
Patient sleeping, resp unlabored, even and regular.
--- NOTE | 2021-10-28 13:27 | PM.PREOP ---
Pre-operative Note COVID-19 COVID-19 status: Negative Result date/Date tested (Pos, Neg/Pending): 10/26/21 Interval Note History & Physical reviewed/Exam performed by Physician: Yes Changes to H&P: No
[2021-10-28] MEDS: CEFAZOLIN 2 GM/20 ML SYRINGE IV (15:00)
[2021-10-28] MEDS: TRANEXAMIC ACID 1,000 MG VIAL 1000 MG INJ ×2 (15:02→16:05)
--- NOTE | 2021-10-28 15:29 | SUR.OPER ---
Beach chair with Yamilet/Annette shoulder positioner. Lower body on padded OR bed. Head in foam padded head cradle, secured with straps. Non-operative arm secured <90 degrees abduction. Pillow under knees. Safety belt at thigh. Cloth tape over blanket over lower legs.
[2021-10-28] MEDS: BUPIVACAINE 0.5% W/ EPI (PF) 30 ML VIAL INJ (15:34)
--- NOTE | 2021-10-28 16:37 | PM.OP.1 ---
Operative Date/Time/Diagnoses Date of procedure: 10/28/21 Time of procedure: 16:37 Pre-op diagnosis: Right shoulder massive, irreparable, chronic rotator cuff tear Post-op diagnosis: same Procedure & Clinicians Procedure: Right reverse total shoulder replacement Same procedure as scheduled: Yes Indications: The patient is had chronic right shoulder pain unresponsive to nonoperative therapies. Radiographic studies have revealed changes consistent with a massive rotator cuff tear and arthritis. They have elected to proceed with reverse total shoulder replacement after discussion of the risks benefits and alternatives. Risks discussed included but were not limited to: Failure to improve, instability, infection, nerve damage, deep venous thrombosis, pulmonary embolism, stroke, coma, myocardial infarction and . Surgeon: Oj Lawton [employer] Trainer: Lamar Salvador Click Yes if Unassisted: No Anesthesia Type: General, Peripheral nerve block and Local Operative Notes Findings: Massive tear of supraspinatus and infraspinatus. Very small bones. Mild arthritic change. Closure Type: primary Specimen(s): none sent Prosthetic devices, grafts, tissues, transplants, or devices: Implants used in this procedure manufactured by the [employer] and included an RSP reverse total shoulder system with a 30 mm screw length glenoid base plate, 2 locking screws measuring 18 and 30 mm in length, a-4 x 32 mm glenoid head with retaining screw. On the humeral side there was a 10 mm small shell humeral stem with a 32 mm neutral E +polyethylene small socket insert. Applied: implant(s) Estimated Blood Loss (mL): 200 Blood products transfused: none Procedure in detail: The patient was seen in the preoperative area where they identified the right shoulder as the operative site and this was marked with my initials. They received preoperative antibiotics and underwent the induction of an interscalene block. They were taken to the operating room and placed on the operating room table in a supine position with the underwent the induction of a general anesthetic. A full ?time-out? was performed. They were then repositioned in the ?beach chair? position using a dedicated positioner. All pressure points were well padded. The knees were slightly bent to prevent tension on the sciatic nerves. The right arm was prepared from the fingertips to the base of the neck with ChloraPrep in the usual fashion and draped through sterile drapes. An approximately 12 cm incision was created starting at the clavicle just above the coracoid and going to the deltoid insertion. The deltopectoral interval was used to access the shoulder taking the vein to the medial side. The vein was unfortunately torn during retraction to access the glenoid and was ligated. The upper 1 cm of the pectoralis major was released. The biceps tendon was identified and used as a guide to releasing the remaining subscapularis. The biceps itself was tenodesed over the pectoralis tendon using a suture. The subscapularis was tagged for later repair. The shoulder was dislocated and a proximal humeral osteotomy performed using an extramedullary guide. A proximal humeral protector was then placed. Retractors were placed access the glenoid. A 360 degree release was performed of the remaining subscapularis with care being taken to protect the axillary nerve. The soft tissues were removed circumferentially around the glenoid. The guide was used to drill the guide hole in the center of the inferior glenoid. The tap was placed and used as a guide for the reamer. The tap was then removed and the glenoid base plate inserted. The peripheral locking screws were then placed through the appropriate guide. The anterior and posterior screws were not placed due to the diminutive size of the patient as there was minimal bone stock for the screws to access. The superior and inferior screws had good purchase. A trial glenoid head was applied. We then turned our attention to the humerus. The proximal humeral protector was removed. Cylindrical reamers were used to size the canal. Broaching was then performed beginning with a small broach and working up until a line to line fit with the reamer was obtained. The guide for the proximal metaphyseal reamer was then applied and the metaphysis was reamed appropriately. The trial metaphyseal portion of the body was then applied to the broach. Trial reductions were performed and the size of the glenoid head and the cup were optimized. Stability was checked in maximal internal and external rotation and range of motion was checked to allow access to the top of the head, internal rotation to an excess of 50? in the ?scarecrow position? and the ability to reach the groin. The appropriate final prosthetic components were then opened. The glenoid head was impacted into position and checked for rotational and axial stability before placing the set screw. The humeral prosthetic was then impacted into position. The humeral cup was placed. The joint was relocated and irrigated. The subscapularis was repaired to the lateral remnant with #2 Ethibond [id number] sutures. The deltopectoral interval was reapproximated with 0 Vicryl. Subcutaneous layer was closed with interrupted 3-0 Vicryl and skin with a running 3 0 V lock suture. Subcutaneous tissues were then infiltrated with 0.5% Marcaine for postoperative pain control. An Aquacel Ag dressing was applied and the patient's arm was placed in a sling. The patient was then transferred to the recovery room in good condition having tolerated the procedure well. Complications: none Post-operative Condition: stable Disposition: PACU Plan for aftercare: The patient will be allowed to do pendulum exercises and use her arm in front of her body with lifting no more than 1-2 lb. Range of motion will be initially restricted to 90? forward flexion, 0? external rotation, 0? abduction and internal rotation to the body. If she is stable for discharge home she will be discharged tomorrow morning.
--- NOTE | 2021-10-28 16:50 | SUR.PREOP ---
Block start time 1410. Monitoring initiated and maintained throughout procedure. No Oxygen and medications per anesthesiologist. Patient remained stable throughout procedure, no adverse reactions noted. Block end time 1436Pt left for OR in stable condition.
--- NOTE | 2021-10-28 17:38 | SUR.PHASEI ---
IS teaching with fair return demonstration with reinforce teaching
[2021-10-28] MEDS: LACTATED RINGERS 1,000 ML 100 ML IV (18:44)
[2021-10-28] MEDS: ACETAMINOPHEN 325 MG TABLET 650 MG PO (18:45)
--- NOTE | 2021-10-28 19:30 | PC.NURSE ---
Pt arrived to [facility] from PACU alert. Aquacell CDI and soft sling to right shoulder. IVF infusing into LFA via pump w/o incidence. Pt oriented to room & call system Call light w/in reach, bed alarm on for pt safety. Continue w/plan of care.
[2021-10-28] MEDS: ASPIRIN EC 81 MG TABLET PO (20:19)
[2021-10-28] MEDS: DOCUSATE 100 MG CAPSULE PO (20:19)
[2021-10-28] MEDS: PANTOPRAZOLE DR 40 MG TABLET PO (20:19)
[2021-10-28] MEDS: OXYCODONE IR 5 MG TABLET PO (20:26)
[2021-10-29] MEDS: LATANOPROST 0.005% OPHTH 2.5 ML 1 DROPS EYE-BOTH (00:36)
[2021-10-29] MEDS: ATORVASTATIN 20 MG TABLET 80 MG PO (00:36)
[2021-10-29] MEDS: ACETAMINOPHEN 325 MG TABLET 650 MG PO ×2 (00:37→06:34)
[2021-10-29 05:18] VITALS: BP 101/48; PULSE 84; RESP 16; TEMP 36.1; O2SAT 93
[2021-10-29 06:42] LABS: Hematocrit 29.4 % (36-46); Hemoglobin 10.1 g/dL (12.0-16.0)
--- NOTE | 2021-10-29 07:26 | P.DS_ITS ---
History of Present Illness History of Present Illness Date Patient Seen: 10/29/21 Time Patient Seen: 07:26 Chief complaint: RT TSA 10/28 *OPB* Narrative: The history and physical is contained in the chart in a previously completed note. Please refer to that note for this information. Discharge Providers Provider Date of admission: October 28, 2021 Discharge Date: 10/29/21 Primary care physician: Aaron Desai MD Consults: 10/28/21 17:53 Consult to Discharge Planning Routine Comment: Consult to Physical Therapy Evaluate & Treat Comment: Physician Instructions: pendulums, PROM 90 FF, 0 Abd, 0 ER, IR to body Consult to Respiratory Therapy Evaluate & Treat Comment: Physician Instructions: Evaluate and treat Discharge provider: Oj Lawton MD Summary Hospital Course Discharge Diagnosis: 1. Rotator cuff arthropathy, right shoulder with massive irreparable rotator cuff tear 2. Post hemorrhagic anemia Hospital Course: Patient was admitted to the hospital and taken directly to the operating room on October 28, 2021. She underwent a right reverse total shoulder replacement without complications. On postoperative day 1 she was comfortable. She had a mild post hemorrhagic anemia as anticipated after this surgery. She was neurologically intact. Status at Discharge Cognitive/behavioral status at discharge: at baseline, oriented Functional status at discharge: independent ambulation Overall status at discharge: patient is progressing back to baseline Time Spent with Patient Time spent: Less than 30 minutes Exam Vital Signs (past 8 hours): - 10/29/21 05:18 Temperature 96.9 F L Pulse Rate 84 Respiratory Rate 16 Blood Pressure 101/48 L Pulse Oximetry 93 Oxygen Delivery Method Nasal Cannula Oxygen Flow Rate 4 Narrative Exam Narrative: Right upper extremity wound is dressed with no drainage on the bandage. Light touch is intact in the radial, ulnar, median, muscular cutaneous and axillary nerve distribution. She can extend her thumb, abduct her thumb and abduct her fingers. She can fire her biceps and deltoid. Objective Labs Result Diagrams: 10/29/21 06:28 Labs: Laboratory Results - last 24 hr 10/29/21 06:28 Hgb 10.1 L Hct 29.4 L [facility] Medical History (Updated 10/21/21 @ 13:23 by Alie Danielle RN) Anxiety Arthritis Breast cancer, left (~1993) Carotid artery stenosis Depression Double vision Easy bruisability Fibromyalgia GERD (gastroesophageal reflux disease) History of colon cancer, stage III History of subarachnoid hemorrhage (~2015) HLD (hyperlipidemia) Hypoglycemia Osteoarthritis Pelvis fracture (1994) PTSD (post-traumatic stress disorder) RLS (restless legs syndrome) Spinal stenosis (~2013) Surgical History (Updated 10/21/21 @ 13:23 by Alie Danielle RN) History of carpal tunnel repair History of colon resection (2013) History of knee replacement History of Steve fundoplication (2003) Hx of abdominal surgery (08/16/18) Hx of bilateral cataract extraction S/P right unicompartmental knee replacement Status post breast biopsy Status post laparoscopic Steve fundoplication (~1998) Family History (Updated 07/24/18 @ 10:27 by Shanta Badillo LPN) Father Diabetes mellitus Cancer Mother Breast cancer Brother Lung cancer Bone cancer Social History (Updated 07/24/18 @ 10:28 by Shanta Badillo LPN) marital status: household members: none occupational status: previously employed Smoking Status: Never smoker alcohol intake: never substance use type: does not use Discharge Assessment & Plan Assessment and Plan Assessment: Stable postoperative day 1 except mild post hemorrhagic anemia after reverse total shoulder replacement on the right. Plan of Treatment: Discharged home today with follow-up in my office in 2 weeks. Prescription for oxycodone has been called to her pharmacy. She has been instructed to use aspi rin for DVT prophylaxis and Tylenol for additional pain control. We anticipate the anemia will address itself with appropriate dietary measures. Discharge Plan Discharge Plan Patient Disposition: Home Discharge orders & Medications Discharge Orders: Discharge (Order); Ordered 10/29/21 Ordered By: Oj Lawton Prescriptions: New acetaminophen 325 mg Tablet 650 mg PO Q6HR 30 Days 0RF aspirin 81 mg Tablet,Delayed Release (Dr/Ec) 81 mg PO BID 42 Days Qty: 84 0RF oxycodone 5 mg Tablet 5 mg PO Q4H PRN (Reason: Pain, Moderate (4-6)) Qty: 40 0RF Continued fluoxetine 20 MG capsule 40 mg PO QDAY Qty: 0 0RF atorvastatin [Lipitor] 40 MG tablet 80 mg PO HS Qty: 0 0RF cholecalciferol (vitamin D3) 2,000 unit capsule 2,000 unit PO DAILY 0RF aspirin 81 mg Tablet,Delayed Release (Dr/Ec) 81 mg PO DAILY 0RF amlodipine [Norvasc] 5 mg Tablet 5 mg PO DAILY 0RF latanoprost [Xalatan] 0.005 % Drops 1 drp OPHTHALMIC (EYE) BEDTIME 0RF pantoprazole [Protonix] 40 mg Tablet,Delayed Release (Dr/Ec) 40 mg PO BID 0RF meloxicam 15 mg Tablet 15 mg PO DAILY 0RF Follow up/Referrals: Aaron Desai MD [Primary Care Provider] - Oj Lawton MD [Physician] - 2 Weeks Diet/Activity/Treatments Diet: Diet as Tolerated and Regular Activity: You may use your right hand in front of your body below shoulder level to lift 1-2 lb. You may do pendulum exercises. Use the sling when up and about. Cold/Heat Therapy: You may use ice to the right shoulder for 15 minutes of every hour as needed for pain relief. Skin/Wound/Dressing Care Report to your healthcare provider any signs of infection, such as:: chills, fever, night sweats, increased pain, unusual drainage and unusual redness Dressing: You may shower with the dressing in place. Leave the dressing in place until your follow up appointment. If the central slip of the dressing becomes saturated with either water or blood, please call the office to have it examined. Visit Report/Discharge Packet Instructions: DI for Shoulder Replacement Stand Alone Forms: Surgery Discharge Discharge Data Primary Care Provider: Aaron Desai Attending Provider: Oj Lawton Quality VTE Deep Vein Thrombosis/Pulmonary Embolism Present on Admission: No
[2021-10-29] MEDS: ASPIRIN EC 81 MG TABLET PO (08:38)
[2021-10-29] MEDS: DOCUSATE 100 MG CAPSULE PO (08:38)
[2021-10-29] MEDS: AMLODIPINE 5 MG TABLET PO (08:39)
[2021-10-29] MEDS: FLUoxetine 20 MG CAPSULE 40 MG PO (08:39)
[2021-10-29] MEDS: CHOLECALCIFEROL (VITAMIN D3) 1,000 UNIT TABLET 2000 UNIT PO (08:39)
[2021-10-29] MEDS: MELOXICAM 7.5 MG TABLET 15 MG PO (08:39)
[2021-10-29] MEDS: PANTOPRAZOLE DR 40 MG TABLET PO (08:39)
[2021-10-29 09:05] VITALS: O2SAT 92
--- NOTE | 2021-10-29 09:20 | PT.IIE ---
Current Diagnoses Complete rotator cuff tear or rupture of right shoulder, not specified as traumatic (10/28/21) Surgery Performed Operation Date: 10/28/21 12:30 Actual Procedures p Total Shoulder Arthroplasty - Reverse(Right) - Oj Lawton MD Surgical History (Last Updated 10/21/21 @ 13:23 by Alie Danielle, RN) History of carpal tunnel repair History of knee replacement Status post breast biopsy Medical History (Last Updated 10/21/21 @ 13:23 by Alie Danielle RN) Anxiety Arthritis Breast cancer, left (~1993) Carotid artery stenosis Depression Double vision Easy bruisability Fibromyalgia GERD (gastroesophageal reflux disease) History of colon cancer, stage III History of subarachnoid hemorrhage (~2015) HLD (hyperlipidemia) Hypoglycemia Osteoarthritis Pelvis fracture (1994) PTSD (post-traumatic stress disorder) RLS (restless legs syndrome) Spinal stenosis (~2013) Physical Therapy Inpatient Evaluation/Re-Eval M1 PT/OT-IP Prior Functional Status Start: 10/29/21 11:32 Freq: NEEDED Status: Active Protocol: Document 10/29/21 09:20 AB (Rec: 10/29/21 11:47 AB [id number]) Medical Review Prior Functional Status Medical History Reviewed Yes Communication able to make needs known; with slight confusion Mobility and Gait pt stated that she is modified independent with all mobilities and ambulation without AD; uses SPC for outdoor mobility Social History Household Members none Living Arrangements House Number of Floors (Floors) One Floor Number of Stairs To Enter/Railing? 4 steps wide rails to enter the house Home Environment High Toilet,Walk in Shower Home Equipment Front Wheel Walker,Straight Cane,Shower Seat with Backrest ,Grab Bars In Shower Additional Social History Comment pt stated that her sister-in- law will stay with her initially and then other family members with assist her . M2 PT-IP Current Condition Start: 10/29/21 11:32 Freq: NEEDED Status: Active Protocol: Document 10/29/21 09:20 AB (Rec: 10/29/21 11:47 AB [id number]) Physical Therapy Current Condition Current Condition Evaluation Date 10/29/21 Treatment Diagnosis s/p R TSA reverse; difficulty in walking Onset Date 10/28/21 M3 PT-IP Subjective Start: 10/29/21 11:32 Freq: NEEDED Status: Active Protocol: Document 10/29/21 09:20 AB (Rec: 10/29/21 11:47 [id number]) Subjective Physical Therapy Visit Type Type Initial Evaluation Visit Start Time 09:20 Visit Stop Time 10:08 Total Visit Minutes 48 Number of AIR TRAFFIC CONTROL OPERATOR Visits 0 Physical Therapy Visit Comments Patient Comments agreeable to do PT Therapy Pain Assessment Pain When Pain Assessed At Rest Pain Present Pain Present Pain Reported Location Right Shoulder Intensity 4 Scale Used Numeric (0 - 10) Pain Management Techniques Apply Cold,Distraction, Modification of Treatment,Re- positioning,Timing of Activity with Medications M4 PT-IP Mobility and Gait Start: 10/29/21 11:32 Freq: NEEDED Status: Active Protocol: Document 10/29/21 09:20 AB (Rec: 10/29/21 11:47 [id number]) PT-Bed Mobility Assessment Supine to Sit Supine to Sit Maximum Assistance PT-Transfer Assessment Sit to and From Stand Sit to and from Stand Contact Guard Assistance,1 Person Assistance,Use of Upper Extremities Equipment Transfer Assistive Device None,Gait Belt Orthotic/Prosthetic Devices or Brace: Yes Transfers Transfer Destination Chair Transfer Technique ambulated Transfer Ability Level of Assist Contact Guard Assistance,1 Person Assistance,Use of Upper Extremities Comments Mobility Comments educated pt on shoulder precautions and sling management. completed supine to sit max A and max cues with x 3 attempts . pt able to sit on EOB SBA. adjusted sling. pt completed elbow/wrist/hand exercises. also educated on pendulum exercises and pt attempted but unable to move UE passively. cued for safety. pt completed sit to stand CGA and ambulated in room without AD CGA 20 ft and pt sat on chair. agreed to do stairs. ambulated towards the stairs without AD CGA. pt with unsteady gait. completed up/ down steps using L rail ascending SBA. pt ambulated back to her room CGA. agreed to sit on the chair. positioned. call light and table placed within reach. informed pt that caregiver training has to be conducted prior to d/c and agreed. will call her [id number] for training. Gait Assessment Gait Gait Assistance Required: Contact Guard Assist Distance (Feet) 125 Able to Maintain Weight Bearing Status Yes During Gait Assistive Devices Assistive Device None,Gait Belt Orthotic/Prosthetic Devices or Brace: Yes Gait Deviations General Gait Pattern Antalgic,Decreased Stride Length,Decreased Feet Clearance Factors Limiting Gait Function Factors Limiting Gait Function Decreased Activity Tolerance, Decreased Strength,Limited Range of Motion,Pain,Poor Balance,Poor Safety Awareness Stair Climbing Assessment Evaluation Level of Assist On Stairs Standby Assistance Devices Stair Climbing Assistive Devices Left Railing Technique/Endurance Stair Climbing Direction Ascend and Descend Stair Climbing Technique Step to Step Number of Steps Climbed 3 Query Text: Stair Climbing Set # Repetitions (reps) 1 PT-Balance Assessment Sitting Balance and Reactions Static Sitting Balance Ability Good Dynamic Sitting Balance Ability Good Standing Balance and Reactions Static Standing Balance Ability Fair Dynamic Standing Balance Ability Fair M5 PT-IP Objective Assessments Start: 10/29/21 11:32 Freq: NEEDED Status: Active Protocol: Document 10/29/21 09:20 AB (Rec: 10/29/21 11:47 [id number]) Orientation Orientation/Cognition Level of Alertness Alert Orientation Name,Place,Situation Language Function Ability No Deficits Noted Safety Awareness Decreased Safety Awareness Memory Description Short Term Impaired Gross Range of Motion Lower Extremity ROM Assessment Within Functional Limits Strength Lower Extremity Strength Hip 4-/5 Knee 4-/5 Muscle Tone Muscle Tone WNL Yes M6 PT-IP Treatment Start: 10/29/21 11:32 Freq: NEEDED Status: Active Protocol: Document 10/29/21 09:20 AB (Rec: 10/29/21 11:47 AB [email or web address]) Physical Therapy Treatment Exercises Exercises Shoulder Pendulums,Shoulder Flexion,Elbow Flexion/ Extension,Wrist ROM,Hand ROM Education Education Provided Precautions,Weight Bearing Status,Post-Op Packet,Safety M7 PT-IP Assessment and Plan Start: 10/29/21 11:32 Freq: NEEDED Status: Active Protocol: Document 10/29/21 09:20 AB (Rec: 10/29/21 11:47 [email or web address]) PT Summary Assessment and Plan Potential Rehabilitation Potential Fair Status of Condition at Evaluation Evolving Summary Impairments Pain,ROM,Strength,Balance, Coordination,Sensation,Tone, Cognition,Bed Mobility, Transfers,Gait,Activity Tolerance Assessment Summary pt requiring max A for bed mobility, CGA for transfers and ambulation but max cues for safety and shoulder precautions. caregiver training set up for PM PT session for safe d/c. Goals Bed Mobility Goal Independent Transfer Goal Independent Gait Goal Independent Gait Distance 200 Other Goals up/down 4 steps 1 rail mod i Days to Meet Goals 5 Frequency of Treatment Frequency Of Treatment Twice a Day Treatment Plan Physical Therapy Treatment Plan Bed Mobility Training,Transfer Training,Gait Training, Therapeutic Exercise,Balance Retraining,Post Op Education, Discharge Planning,Hot or Cold Pack,Neuromuscular Re-ed, Coordination Retraining,Manual Therapy Precautions Shoulder Precautions Sling,PROM,Internal Rotation to Body,No External Rotation, No Abduction,Forward Flexion to 90 degrees,Pendulums Weight Bearing Status Weight Bearing Status Non-Weight Bearing Allowed Weight Bearing Amount (enter % RUE NWB or #) (%) Recommendations To Nursing Amount of Assist Needed 1 Person Assist Discharge Recommendations PT Discharge Recommendations Home with 27/12 Assist Available,Outpatient PT Transportation Needs at Discharge Private Vehicle
--- NOTE | 2021-10-29 09:33 | CM.DANOTE ---
DCP: Case received, EMR reviewed and met with patient. Introduced self and role. Was able to obtain information regarding patient's baseline activity status prior to surgery, as well as her current living situation. DCP assessment completed with information currently available. Patient is an 81 year old female who admitted yesterday morning to the care of the orthopedic team. PCP: Dr. Villalobos. Payer: confirmed: Medicare/ for Life. Patient came to the hospital via private vehicle for a surgical procedure. Patient had right reverse total shoulder replacement. Met with patient in her room. She is alert and oriented, she was sitting up in bed with ice on her shoulder. Confirmed with patient that she resides alone in [place]. She indicated, her has dementia, [facility]. At her baseline, she drives short distances, and uses a cane if she needs it. She indicated, she has several friends around to help her, and one of them will be staying with her for a while. P: Patient does have discharge orders, but pending working with P.T. Julee Forbes RN/Search Engine Marketing Specialist Discharge Planning/Care Management CM Discharge Assessment Start: 10/29/21 09:30 Freq: Status: Active Protocol: Document 10/29/21 09:30 (Rec: 10/29/21 09:33 [id number]) Discharge Planning Assessment Assigned Sap Business Intelligence Consultant Julee Forbes RN Case Manager Advance Directives? No History Provided By Patient,Medical Record Prior Living Arrangements House Household Members none Type of transporation used prior to Drives own vehicle admit DME Already Rented / Owned Cane Barriers to Discharge No Comment Patient indicated she has a friend that is staying with her. Transportation Arrangement Friends Referrals Initiated None needed Whiteboard Updated in Patient Room with Yes name and ext. # of Sap Business Intelligence Consultant Review Status In Process Next Review Type Continued Stay Review Pre-Anesthesia Assessment Start: 10/21/21 12:31 Freq: Status: Complete Protocol: Document 10/26/21 11:35 CAB (Rec: 10/21/21 13:46 CAB [id number]) Pre-Anesthesia Assessment Preferred Name Shayy Patient Information Reviewed Via Phone Assessment Assessment Completed With Patient Diagnostic Results BMP/CMP,CBC,EKG,Urinalysis Comment Labs/ECG @ 10/14/21, COVID screen-needs to schedule Primary Care Provider Aaron Desai Seen Specialist in Last 12 Months Yes Specialist Seen Oncologist,Orthopedist Comment Last saw Neuro 07/12/19-records scanned Primary Language Khmer Arm Maker Required No Height 5 ft Weight 155 lb Body Mass Index (BMI) 30.2 Hearing Ability Normal Visual Assist Glasses Dentition Type Full- Upper & Lower Barriers to Learning None Hx Anesthesia Reactions No: 70% to near occlusion high -grad stenosis of Right ICA, increased from prior Additional comment See Carotid US @ [facility] 07/03/19 Hx Family Anesthesia Reaction No Hx Malignant Hyperthermia No Hx Blood Transfusions Yes: s/p colon cancer Hx Blood Transfusion Reaction No Anesthesia Review Requested No Fisheries Biologist No alcohol intake never Smoking Status Never smoker Substance Use Type does not use Pain Present Pain Reported Musculoskeletal Symptoms Back Pain,Difficulty Walking, Joint Pain,Limited Range of Motion History of Falling (Recent or History of Yes ) Patient is completely paralyzed or No completely immobile Prosthesis or Orthotic Device Cane,Front Wheel Walker Mental Status Oriented to own ability Is patient on oxygen? No Does patient have BURGOS/SOB No Hx Sleep Apnea No Currently Taking a Beta Gavin No Hx Chest Pain No Hx SOB No Hx Syncope or Dizziness No Anti-Coagulant Therapy Yes: 81 ASA for arachnoid hemorrhage-pt will check w/PCP if needed to hold Has a School Photograph Editor No Cardiac Testing No Hx Pacemaker/ICD No Pacemaker Rep Required? No Comment Carotid artery disease - Carotid US 07/03/19 @ [facility] - 70% to near occlusion Additional comment High grade Right ICA, increased from prior study Diet Type At Home Regular dysphagia No Gastrointestinal Symptoms Diarrhea,Reflux Urinary Catheter Present No Hx Urinary Self Catheterization No Diabetes No Patient No Lactating No Presence of External or Internal Medical Yes: Right knee, bilat eye Devices IOLs Have you had any close contact with No someone diagnosed with COVID-19? Received a COVID vaccine? Yes Received all doses? No Marital Status Lives With none Prior Living Arrangements House Number of Floors (Floors) One Floor Support System Family Does the Patient Have Assistance After Yes: Family will assist w/care [facility] a [facility] due to Alzheimers Patient Discharge Plan Description Return Home Comment Pt not advised on length of stay per surgeon Feels Safe in Current Environment Yes Been Physically Hurt or Threatened By a No Person in Current Environment Do you have thoughts of harming yourself None or others? Are you currently considering suicide? No Do you have a plan to hurt yourself or No Plan others? Do You Have Any Spiritual Beliefs That No May Affect Your HC Choices? Do You Have Any Cultural Practices That No May Affect Your HC Choices? Comment Hindu Who Can We Speak to About Patient's Care Family, friends Identifying Code for Release of Patient Declines to issue Information Health Care Proxy/Next of Kin Yazmin (Daughter) Health Care Proxy Emergency Contact Name Chase (son) Emergency Contact Advance Directives? No Power of Director Of Community Services Yes Power of Director Of Community Services Name Yazmin (Daughter) Power of Director Of Community Services PAC Instructions Do not shave/clip surgical site,Durable medical equipment ,Medications to take/avoid, Nasal antibiotic,No ETOH/ petroleum product on skin DOS, NPO,Post-op transportation,Pre -surgical wash,Sturdy shoes/ comfortable clothes
[2021-10-29 11:25] VITALS: BP 96/64; PULSE 83; RESP 18; TEMP 36.8; O2SAT 97
--- NOTE | 2021-10-29 11:40 | PC.NURSE ---
Addendum entered by Rachel Abebe R.N. 10/29/21 13:18: Pt had caregiver training w/ PT Med w/ Oxycodone at 1220 for discomfort w/good relief. Discharge instructions given w/understanding Pt & friend escorted by staff via W/C to waiting vehicle. D/C in stable post op course. Original Note: Pt sitting in chair, denies discomfort whenever asked. Dsg to right shoulder CDI, pt wearing sling w/o incidence. HL was discontinued intact for discharge this afternoon. Call light w/in reach, pt calls appropriately for needs. Caregiver training then D/C home
[2021-10-29] MEDS: OXYCODONE IR 5 MG TABLET PO (12:16)
--- NOTE | 2021-10-29 12:20 | PT.IPTN ---
Current Diagnoses Complete rotator cuff tear or rupture of right shoulder, not specified as traumatic (10/28/21) Surgery Performed Operation Date: 10/28/21 12:30 Actual Procedures p Total Shoulder Arthroplasty - Reverse(Right) - Oj Lawton MD Physical Therapy Treatment Note M2 PT-IP Current Condition Start: 10/29/21 11:32 Freq: NEEDED Status: Active Protocol: Document 10/29/21 09:20 AB (Rec: 10/29/21 11:47 AB [email or web address]) Physical Therapy Current Condition Current Condition Evaluation Date 10/29/21 Treatment Diagnosis s/p R TSA reverse; difficulty in walking Onset Date 10/28/21 M3 PT-IP Subjective Start: 10/29/21 11:32 Freq: NEEDED Status: Active Protocol: Document 10/29/21 12:20 AB (Rec: 10/29/21 13:00 AB [email or web address]) Subjective Physical Therapy Visit Type Type Treatment Note Visit Start Time 12:20 Visit Stop Time 12:50 Total Visit Minutes 30 Number of BREAKER MECHANIC Visits 0 Physical Therapy Visit Comments Patient Comments agreeable to do PT Therapy Pain Assessment Pain When Pain Assessed At Rest Pain Present Pain Present Pain Reported Location Right Shoulder Intensity 7 Scale Used Numeric (0 - 10) Pain Management Techniques Distraction,Modification of Treatment,Re-positioning, Timing of Activity with Medications M4 PT-IP Mobility and Gait Start: 10/29/21 11:32 Freq: NEEDED Status: Active Protocol: Document 10/29/21 12:20 AB (Rec: 10/29/21 13:00 AB [email or web address]) PT-Bed Mobility Assessment Supine to Sit Supine to Sit Moderate Assistance Sit to Supine Sit to Supine Standby Assistance PT-Transfer Assessment Sit to and From Stand Sit to and from Stand Contact Guard Assistance,1 Person Assistance,Use of Upper Extremities Equipment Transfer Assistive Device None,Gait Belt Orthotic/Prosthetic Devices or Brace: Yes Transfers Transfer Destination Bed Transfer Technique Stand Step Pivot Transfer Ability Level of Assist Contact Guard Assistance,1 Person Assistance,Use of Upper Extremities Comments Mobility Comments pt's sister in law in room for caregiver training. educated on pt's shoulder precautions, exercises and sling management . caregiver was able to put sling on pt. also educated on use of safety belt and was able to put safety belt on pt. assisted pt with sit to stand CGA and step transfer to bed CGA. completed sit to supine SBA. caregiver assisted pt with supine to sit . educated on how to assist pt . caregiver ambulated pt in room ~ 30 ft without AD. pt refused to do stair climbing and stated that she knows how to do it. stair climbing training was don during am PT session and pt needing SBA only. pt sat back on the chair. pt and caregiver without any further concerns. Gait Assessment Gait Gait Assistance Required: Contact Guard Assist Distance (Feet) 30 Able to Maintain Weight Bearing Status Yes During Gait Assistive Devices Assistive Device None,Gait Belt Orthotic/Prosthetic Devices or Brace: Yes Gait Deviations General Gait Pattern Decreased Stride Length, Decreased Feet Clearance,Step- to Gait Factors Limiting Gait Function Factors Limiting Gait Function Decreased Activity Tolerance, Decreased Strength,Limited Range of Motion,Pain,Poor Balance,Poor Safety Awareness M5 PT-IP Objective Assessments Start: 10/29/21 11:32 Freq: NEEDED Status: Active Protocol: Document 10/29/21 09:20 AB (Rec: 10/29/21 11:47 [facility] Orientation Orientation/Cognition Level of Alertness Alert Orientation Name,Place,Situation Language Function Ability No Deficits Noted Safety Awareness Decreased Safety Awareness Memory Description Short Term Impaired Gross Range of Motion Lower Extremity ROM Assessment Within Functional Limits Strength Lower Extremity Strength Hip 4-/5 Knee 4-/5 Muscle Tone Muscle Tone WNL Yes M6 PT-IP Treatment Start: 10/29/21 11:32 Freq: NEEDED Status: Active Protocol: Document 10/29/21 12:20 AB (Rec: 10/29/21 13:00 AB [id number]) Physical Therapy Treatment Exercises Exercises Shoulder Pendulums,Elbow Flexion/Extension,Wrist ROM, Hand ROM Education Education Provided Precautions,Safety Brace Education Donning,[place],Caregiver M7 PT-IP Assessment and Plan Start: 10/29/21 11:32 Freq: NEEDED Status: Active Protocol: Document 10/29/21 12:20 AB (Rec: 10/29/21 13:00 [facility] PT Summary Assessment and Plan Potential Rehabilitation Potential Good Summary Impairments Pain,ROM,Strength,Balance, Coordination,Sensation,Tone, Cognition,Bed Mobility, Transfers,Gait,Activity Tolerance Progress Towards Goals Slow Progress due to Pain Assessment Summary caregiver training conducted and pt's caregiver was able to assist pt safely. pt plans to go home today with assist. Goals Bed Mobility Goal Independent Transfer Goal Independent Gait Goal Independent Gait Distance 200 Other Goals up/down 4 steps 1 rail mod i Days to Meet Goals 5 Frequency of Treatment Frequency Of Treatment Twice a Day Treatment Plan Physical Therapy Treatment Plan Bed Mobility Training,Transfer Training,Gait Training, Therapeutic Exercise,Balance Retraining,Post Op Education, Discharge Planning,Hot or Cold Pack,Neuromuscular Re-ed, Coordination Retraining,Manual Therapy Precautions Shoulder Precautions Sling,PROM,Internal Rotation to Body,No External Rotation, No Abduction,Forward Flexion to 90 degrees,Pendulums Weight Bearing Status Weight Bearing Status Non-Weight Bearing Allowed Weight Bearing Amount (enter % RUE NWB or #) (%) Recommendations To Nursing Amount of Assist Needed 1 Person Assist Discharge Recommendations PT Discharge Recommendations Home with 27/12 Assist Available,Outpatient PT
== END 2021-10-29 13:20 | disposition home or self-care (01) | DRG 483 ==
LOC: OR 10:37 → AC 10:37
PROVIDERS: Admitting Provider Orthopaedic Surgery; Family Provider Psychiatry & Neurology Neurology; PCP Family Medicine; Referring Provider Orthopaedic Surgery; Visit Provider Orthopaedic Surgery
PROC: 0RRJ00Z Replacement of Right Shoulder Joint with Reverse Ball and Socket Synthetic Substitute, Open Approach (ICD-10-PCS; CPT 23472; principal; 2021-10-28 12:30)
DX: M75.121 Complete rotator cuff tear or rupture of right shoulder, not specified as traumatic (principal); E78.5 Hyperlipidemia, unspecified; I10 Essential (primary) hypertension; K21.9 Gastro-esophageal reflux disease without esophagitis; F32.A Depression, unspecified; M19.91 Primary osteoarthritis, unspecified site; F17.210 Nicotine dependence, cigarettes, uncomplicated; Z20.822 Contact with and (suspected) exposure to COVID-19
CPT/HCPCS: 36415; 64450; 73020; 85014; 85018; 87635; 97162; 97530; C1776; C9803; J0690; J1100; J2250; J2405; J2704; J3010

== ENCOUNTER 2022-02-23 15:56 | Emergency (ER) | payer MEDICARE, OTHER, SELFPAY ==
[2021-10-28 17:44] VITALS: BMI 30.2
[2022-02-23 16:02] VITALS: BP 117/59; PULSE 81; RESP 18; TEMP 36.4; O2SAT 98; BMI 27.3
--- NOTE | 2022-02-23 16:08 | DI.RAD.S_ITS ---
PROCEDURE: XR CHEST 1V INDICATIONS: chest pain TECHNIQUE: One view of the chest was acquired. COMPARISON: [facility], , CHEST 1 VIEW, 02/13/2017, 14:57. [facility], , XR SHOULDER RT MIN 2V, 02/23/2022, 16:17. FINDINGS: Surgical changes and devices: Right shoulder arthroplasty hardware is partially seen. Lungs and pleura: Lungs are clear. No pleural effusions or pneumothorax. Mediastinum: Mediastinal contours appear normal. Heart size is normal. Atherosclerotic calcification of the aortic arch is noted. Bones and chest wall: No suspicious bony lesions. Age-appropriate bony degenerative changes are seen. Overlying soft tissues appear unremarkable. IMPRESSION: Unremarkable portable chest for age. Dictated by: Michael Stahl M.D. on 02/23/2022 at 15:37 Approved by: Micahel Stahl M.D. on 02/23/2022 at 15:38
--- NOTE | 2022-02-23 16:09 | DI.RAD.S_ITS ---
PROCEDURE: XR SHOULDER RT MIN 2V INDICATIONS: fall. R shoulder injury. Recent R shoulder replacement TECHNIQUE: 3 views of the shoulder were acquired. COMPARISON: [facility] [place], CR, XR SHOULDER 2+ VIEWS RIGHT, 12/14/2021, 11:10. [facility], CR, XR SHOULDER 2+ VIEWS BILATERAL, 10/01/2021, 12:13. [facility], CR, XR SHOULDER RT 1V, 10/28/2021, 16:48. FINDINGS: Bones: No fractures or dislocations. No suspicious bony lesions. Visualized ribs appear intact. Right shoulder arthroplasty hardware is seen, without findings of failure or loosening. Soft tissues: No suspicious soft tissue calcifications. The visualized lung demonstrates an unremarkable appearance. IMPRESSION: Unremarkable right shoulder arthroplasty hardware. Dictated by: Michael Stahl M.D. on 02/23/2022 at 15:38 Approved by: Michael Stahl M.D. on 02/23/2022 at 15:38
[2022-02-23 16:50] LABS: Add Manual Diff / Slide Review NO; Basophils Absolute Auto 0 /uL (0-100); Basophils Percent Auto 0.5 % (0-2); Eosinophils Absolute Auto 100 /uL (0-450); Eosinophils Percent Auto 0.8 % (2-4); Hematocrit 35.5 % (36-46); Lymphocytes Absolute Auto 1600 /uL (1100-4500); Lymphocytes Percent Auto 22.4 % (25-40); Mean Corpuscular HGB Conc 33.7 % (30-36); Mean Corpuscular Hemoglobin 27.6 PG (26-34); Mean Corpuscular Volume 81.8 fL (80-100); Monocytes Absolute Auto 500 /uL (0-900); Monocytes Percent Auto 7.9 % (3-14); Neutrophils Absolute Auto 4700 /uL (1500-7000); Neutrophils Percent Auto 68.4 % (50-75); Platelet Count 330 X10^3/uL (150-400); Red Blood Cell Count 4.34 X10^6/uL (4.0-5.2); White Blood Cell Count 6.9 X10^3/uL (4.5-11.0)
[2022-02-23 17:01] LABS: Alanine Aminotransferase 13 IU/L (<35); Albumin 4.2 g/dL (3.5-5.0); Albumin Globulin Ratio 1.3 (1.0-2.8); Alkaline Phosphatase 110 U/L (38-126); Aspartate Aminotransferase 24 IU/L (14-36); BUN Creatinine Ratio 20.7 (6-22); Bilirubin Total 0.5 mg/dL (0.2-1.3); Blood Urea Nitrogen 24 mg/dL (7-17); Calcium 9.5 mg/dL (8.4-10.2); Carbon Dioxide 23 mmol/L (22-32); Chloride 109 mmol/L (98-107); Creatine Kinase 42 U/L (30-135); Estimated Glomerular Filt Rate 47 mL/min (>60); Globulin 3.3 g/dL (1.7-4.1); Glucose 95 mg/dL (80-110); HEMOLYSIS < 15 (0-50); Lipase 93 U/L (23-300); Magnesium 1.9 mg/dL (1.6-2.3); Potassium 4.5 mmol/L (3.4-5.1); Sodium 140 mmol/L (137-145); Total Protein 7.5 g/dL (6.3-8.2)
[2022-02-23 17:12] LABS: Troponin I < 0.012 ng/mL (0.01-0.034)
--- NOTE | 2022-02-23 19:06 | PC.NURSE ---
Pt ambulated up to bathroom with this RN. Steady on feet, however utilized furniture to assist at one point. Denied dizziness.
--- NOTE | 2022-02-23 19:34 | ED_ITS ---
HPI - Fall General Chief Complaint: Fall Stated Complaint: Generalized weakness,dizzy Time Seen by Provider: 02/23/22 18:28 Source: patient and EMS Mode of arrival: Wheelchair History of Present Illness HPI Narrative: 81-year-old female nonsmoker with history of hypertension, chronic diarrhea, GERD, breast cancer, hyperlipidemia presents by ambulance for evaluation of a dizzy episode. She states that she has been having dizziness and some ambulation difficulties for somewhere between multiple months and a year. She states that today she was getting out of the car and took a few steps and which point she became dizzy and had a gentle fall into a wall and hurt her shoulder. She denies any head or neck pain. She states she has full recall and did not pass out. She denied any other symptoms associated. Chronically she is had m ultiple symptoms for quite some time which include chest pain and shortness of breath as well as frequent nausea, vomiting and diarrhea with abdominal pain. She denies medication or dietary change Related Data Home Medications Medication Instructions Recorded Confirmed atorvastatin 40 mg tablet (Lipitor) 80 mg PO HS ##0 08/03/16 10/28/21 fluoxetine 20 mg capsule 40 mg PO QDAY ##0 08/03/16 10/28/21 aspirin 81 mg tablet,delayed 81 mg PO DAILY 01/18/18 10/28/21 release amlodipine 5 mg tablet (Norvasc) 5 mg PO DAILY 06/19/18 10/28/21 cholecalciferol (vitamin D3) 50 2,000 unit PO DAILY 07/24/18 10/28/21 mcg (2,000 unit) capsule latanoprost 0.005 % eye drops 1 drp ophthalmic (eye) BEDTIME 04/24/20 10/28/21 (Xalatan) pantoprazole 40 mg tablet,delayed 40 mg PO BID 04/24/20 10/28/21 release (Protonix) meloxicam 15 mg tablet 15 mg PO DAILY 12/10/20 10/28/21 Previous Rx's Medication Instructions Recorded oxycodone 5 mg tablet 5 mg PO Q4H PRN Pain, Moderate 10/29/21 (4-6) #40 tabs oxycodone 5 mg tablet 5 mg PO Q4HR PRN Pain, Moderate 10/29/21 (4-6) #40 tabs sulfamethoxazole 800 1 tab PO BID 5 days #10 tabs 09/20/22 mg-trimethoprim 160 mg tablet (Bactrim DS) Allergies Allergy/AdvReac Type Severity Reaction Status Date / Time adhesive [ADHESIVE] Allergy Severe RASH, Verified 10/28/21 11:24 BLISTERS amoxicillin [AMOXICILLIN] AdvReac Severe N/V, Verified 10/28/21 10:55 diarrhea clavulanic acid AdvReac Severe N/V, Verified 10/28/21 10:55 [CLAVULANIC ACID] diarrhea valdecoxib [VALDECOXIB] AdvReac Severe ULCER Verified 10/28/21 10:55 celecoxib [CELECOXIB] AdvReac Mild Upset Verified 10/28/21 10:55 stomach, VOMITING hydrocodone [HYDROCODONE] AdvReac Mild Stomach Verified 10/28/21 10:55 upset, VOMITING NSAIDS (Non-Steroidal AdvReac Unknown They Verified 10/28/21 10:55 Anti-Inflamma don't work [NSAIDS (NON-STEROIDAL at all ANTI-INFLAMMA] Review of Systems Review of Systems Narrative: GENERAL: See HPI HEENT: Denies sinus pain, ear pain, sore throat, difficulty swallowing, dizziness. RESPIRATORY: See HPI CARDIOVASCULAR: Denies chest pain, palpitations, orthopnea, edema, GASTROINTESTINAL: See HPI : Denies dysuria, frequency, incontinence, hematuria, urinary retention. MUSCULOSKELETAL: denies weakness, joint pain, or bony pain SKIN: Denies rash, skin lesions, or other NEUROLOGIC: See HPI PSYCHIATRIC: No concerning psychosocial issues. 12 point review of systems is negative except for those stated above Patient History Medical History Anxiety Arthritis Breast cancer, left (~1993) Carotid artery stenosis Depression Double vision Easy bruisability Fibromyalgia GERD (gastroesophageal reflux disease) History of colon cancer, stage III History of subarachnoid hemorrhage (~2015) HLD (hyperlipidemia) Hypoglycemia Osteoarthritis Pelvis fracture (1994) PTSD (post-traumatic stress disorder) RLS (restless legs syndrome) Spinal stenosis (~2013) Surgical History History of carpal tunnel repair History of colon resection (2013) History of knee replacement History of Steve fundoplication (2003) Hx of abdominal surgery (08/16/18) Hx of bilateral cataract extraction S/P right unicompartmental knee replacement Status post breast biopsy Status post laparoscopic Steve fundoplication (~1998) Family History Father Diabetes mellitus Cancer Mother Breast cancer Brother Lung cancer Bone cancer Social History marital status: household members: none occupational status: previously employed Smoking Status: Never smoker alcohol intake: never substance use type: does not use Smoking Status: Never smoker alcohol intake frequency: 0-2 drinks per day Substance Use Type: does not use Exam Narrative Exam Narrative: GENERAL: [81] year old patient appears stated age. Well-developed patient, in mild distress. GCS 15 HEAD: Atraumatic. Normocephalic. EYES: Pupils equal round and reactive. Extraocular motions intact. No scleral icterus. No injection or drainage. ENT: Nose without bleeding, purulent drainage. Throat without erythema, tonsillar hypertrophy or exudate. Airway patent. NECK: Trachea midline. Non tender CARDIOVASCULAR: Regular rate and rhythm without murmurs, gallops, or rubs. RESPIRATORY: Clear to auscultation. Breath sounds equal bilaterally. No wheezes, rales, or rhonchi. GASTROINTESTINAL: Abdomen soft, generalized abdominal pain, nondistended. EXTREMITIES: No edema or joint tenderness. BACK: Nontender without deformity or crepitance. No flank tenderness. NEURO: AOx3. SKIN: No rash or erythema of visible areas NIH Stroke Scale 1a. LOC: Patient is alert and keenly responsive (0) 1b. LOC Questions: Patient answers both LOC questions accurately (0) 1c. LOC Commands: Patient performs both tasks correctly (0) 2. Best Gaze: Normal (0) 3. Visual: No visual loss (0) 4. Facial palsy: Normal symmetrical movements (0) 5. Motor arm: No drift (0) 6. Motor leg: No drift (0) 7. Limb ataxia: Absent (0) 8. Sensory: Normal (0) 9. Best language: No aphasia; normal (0) 10. Dysarthria: Normal (0) 11. Extinction and inattention: No abnormality (0) NIHSS: 0 Initial Vital Signs Initial Vital Signs: Vital Signs Temperature 97.6 F 02/23/22 16:02 Pulse Rate 81 02/23/22 16:02 Respiratory Rate 18 09/20/22 16:02 Blood Pressure 117/59 L 02/23/22 16:02 Pulse Oximetry 98 02/23/22 16:02 Oxygen Delivery Method 02/23/22 16:02 Course Orders Ordered: ED Orders 02/23/22 19:45 CT abdomen pelvis w con Stat CT angio chest PE protocol Stat CT head/brain wo con Stat 02/23/22 19:46 Urine Microscopic Stat 02/23/22 19:54 Urine Culture Stat Discontinued Medications Sodium Chloride (Normal Saline 0.9%) 1,000 mls @ 1,000 mls/hr IV BOLUS ONE Stop: 02/23/22 20:44 Last Infusion: 02/23/22 21:20 Dose: 0 mls/hr Documented By: Admin: 02/23/22 19:59 Dose: 1,000 mls/hr Documented By: JOSIE Trimethoprim/Sulfamethoxazole (Trimeth/Sulfa 160/800 (Ds) Tablet) 1 tab PO NOW ONE Stop: 02/23/22 21:41 Last Admin: 02/23/22 21:56 Dose: 1 tab Documented By: JOSIE Vital Signs Vital signs: Vital Signs - 8 hr 02/23/22 20:50 Pulse Rate 70 Respiratory Rate 15 Blood Pressure 107/58 L Pulse Oximetry 95 Oxygen Delivery Method Room Air MDM - Fall Lab Data Result diagrams: 02/23/22 16:24 02/23/22 16:24 Labs: Lab Results 02/23/22 02/23/22 02/23/22 Range/Units 16:24 16:24 19:46 WBC 6.9 (4.5-11.0) X10^3/uL RBC 4.34 (4.0-5.2) X10^6/uL Hgb 12.0 (12.0-16.0) g/dL Hct 35.5 L (36-46) % MCV 81.8 (80-100) fL MCH 27.6 (26-34) PG MCHC 33.7 (30-36) % RDW 15.0 H (11.6-14.8) % Plt Count 330 (150-400) X10^3/uL Neut % (Auto) 68.4 (50-75) % Lymph % (Auto) 22.4 L (25-40) % [place] % (Auto) 7.9 (3-14) % Eos % (Auto) 0.8 L (2-4) % Baso % (Auto) 0.5 (0-2) % Neut # (Auto) 4700 (7149-5590) /uL Lymph # (Auto) 1600 (9518-5518) /uL [place] # (Auto) 500 (0-900) /uL Eos # (Auto) 100 (0-450) /uL Baso # (Auto) 0 (0-100) /uL Sodium 140 (137-145) mmol/L Potassium 4.5 (3.4-5.1) mmol/L Chloride 109 H (98-107) mmol/L Carbon Dioxide 23 (22-32) mmol/L BUN 24 H (7-17) mg/dL Creatinine 1.16 H (0.52-1.04) mg/dL Estimated GFR 47 L (>60) mL/min BUN/Creatinine Ratio 20.7 (6-22) Glucose 95 (80-110) mg/dL Calcium 9.5 (8.4-10.2) mg/dL Magnesium 1.9 (1.6-2.3) mg/dL Total Bilirubin 0.5 (0.2-1.3) mg/dL AST 24 (14-36) IU/L ALT 13 (<35) IU/L Alkaline Phosphatase 110 (38-126) U/L Total Creatine Kinase 42 (30-135) U/L CK-MB (CK-2) TNP CK-MB (CK-2) Rel Index TNP Troponin I < 0.012 (0.01-0.034) ng/mL Total Protein 7.5 (6.3-8.2) g/dL Albumin 4.2 (3.5-5.0) g/dL Globulin 3.3 (1.7-4.1) g/dL Albumin/Globulin Ratio 1.3 (1.0-2.8) Lipase 93 (23-300) U/L Urine RBC 5-10/hpf H (0-5/HPF) Urine WBC 5-10/hpf H (0-5/HPF) Ur Squamous Epith Cells 5-10 /hpf H (0-5/HPF) Ur Transition Epith Cell 1-5/hpf (0-5/HPF) Urine Bacteria Many (>30) H (None) Hyaline Casts 5-10/lpf (None) Ur Culture Indicated? Culture not indicate Urine Dip Bedside Urine Glucose Negative Bedside Urine Bilirubin - Negative Bedside Urine Ketone +/- 5 Urine Specific [place] 1.030 Bedside Urine Occult Blood - Negative Bedside Urine pH 5.5 Bedside Urine Protein - Negative Bedside Urine Urobilinogen - Negative Bedside Urine Nitrite - Negative Bedside Urine Leukocytes +/- [address] scan - head: Radiologist's Impression: Crystal Branch??81??F??1940 ? Allergy/Adv: adhesive, amoxicillin, clavulanic acid, valdecoxib, celecoxib, hydrocodone, NSAIDS (Non-Steroidal Anti-Inflamma (More??) Close Head CT (Signed) Nick Ludwig - 02/23/22 Chest CTA (Signed) Nick Ludwig - 02/23/22 Abdomen/Pelvis CT (Signed) Ludwig,Nick - 02/23/22 Shoulder X-Ray (Signed) Michael Stahl - 02/23/22 Chest X-Ray (Signed) Michael Stahl - 02/23/22 Telemetry Strips 10/28/21 Telemetry Strips 10/28/21 Shoulder X-Ray (Signed) Favio,Michael - 10/28/21 Shoulder MRI (Signed) Kike Herring - 09/23/21 Shoulder MRI (Signed) Kike Herring - 09/23/21 Breast Biopsy Ultrasound (Signed) Keyanna Perez - 05/27/20 Mammogram Diagnostic (Signed) Keyanna Perez - 05/27/20 Mammogram Diagnostic (Signed) Nick Ludwig - 05/13/20 Breast Ultrasound (Signed) Nick Ludwig - 05/13/20 Carotid Doppler Study (Signed) Kevin Barclay - 07/03/19 Carotid Doppler Study (Signed) Chanel Dunaway - 11/22/18 Abdomen/Pelvis CT (Addendum) Timur Wall - 07/03/18 Telemetry Strips 05/15/18 Neck CTA (Addendum) Kevin Barclay - 03/17/18 Lumbar Spine MRI (Signed) Kevin Barclay - 12/23/17 Launch?[address] [address] [address] Scan Report Signed Patient: Crystal Branch MR#: [id number] : 1940 Acct:[id number] Age/Sex: 81 / F Date of Service: 02/23/22 Loc: ED Accession Number: [id number] ?? Procedure: CT head/brain wo con Ordering Provider: Osorio Craft D.O. PROCEDURE:? CT HEAD/BRAIN WO CON ? INDICATIONS:? dizziness and falls ? TECHNIQUE:? Noncontrast 4.5 mm thick angled axial sections acquired from the foramen magnum to the vertex, with coronal and sagittal reformats.? For radiation dose reduction, the following was used:? automated exposure control, adjustment of mA and/or kV according to patient size.? ? COMPARISON:? [facility], CT, HEAD WITHOUT CONTRAST, 02/13/2017, 14:54. ? FINDINGS:? Image quality:? Excellent.? ? CSF spaces:? Basal cisterns are patent.? No extra-axial fluid collections.? There is moderate cerebral volume loss, with resultant ventricular and sulcal prominence.? ? Brain:? No intracranial hemorrhage, mass, or mass effect.? There are subcortical, periventricular and deep white matter hypodensities consistent with mild chronic small vessel ischemic changes.? The lisa-white matter junction appears preserved.? There is intracranial internal carotid artery atherosclerosis.? ? Skull and face:? Calvarium and visualized facial bones appear intact, without suspicious lesions.? ? Sinuses:? Visualized sinuses and mastoids are clear.? ? IMPRESSION:? ? 1. No acute intracranial abnormality. ? 2. Moderate cerebral volume loss and mild chronic white matter small vessel ischemic changes.? ? ? Dictated by: Nick Ludwig M.D. on 02/23/2022 at 20:30 ? ? Approved by: Nick Ludwig M.D. on 02/23/2022 at 20:33 ? CT scan - chest: Radiologist's Impression: ? Chart Viewer Diagnostics Subcategory All Activity ??:?? All Time ??:?? All Subcategories Filter Laboratory Imaging Microbiology Pathology Blood Bank Tests Cardiovascular Other Specialty DATE TYPE STATUS REF RANGE/AUTHOR Hx Today 19:[address] Signed Nick Ludwig Today 19:45 Chest CTA Signed Nick Ludwig Today 19:45 Abdomen/Pelvis CT Signed Nick Ludwig Today 16:09 Shoulder X-Ray Signed Michael Stahl Today 16:08 Chest X-Ray Signed Michael Stahl 10/28/21 10:35 Telemetry Strips ? 10/28/21 10:35 Telemetry Strips ? 10/28/21 06:00 Shoulder X-Ray Signed Michael Stahl 09/23/21 00:00 Shoulder MRI Signed Kike Herring 09/23/21 00:00 Shoulder MRI Signed Kike Herring 05/27/20 09:13 Breast Biopsy Ultrasound Signed Keyanna Perez 05/27/20 00:00 Mammogram Diagnostic Signed Keyanna Perez 05/13/20 13:50 Mammogram Diagnostic Signed Nick Ludwig 05/13/20 13:50 Breast Ultrasound Signed Nick Ludwig 07/03/19 00:00 Carotid Doppler Study Signed Kevin Barclay 11/22/18 00:00 Carotid Doppler Study Signed Chanel Dunaway 07/03/18 00:00 Abdomen/Pelvis CT Addendum Timur Wall 05/15/18 10:12 Telemetry Strips ? 03/17/18 11:21 Neck CTA Addendum Kevin Barclay 12/23/17 00:00 Lumbar Spine MRI Signed Kevin Barclay Mildred M ED 81, F?1940 MRN#? [id number] REG ER,?Main ED??R13?? 152.4cm 63.503kg BMI: 27.3kg/m? Fall Acc#? [id number] Resus Status Not Ordered Hx Avail Special Indicators No Data to Display Home Meds Not Confirmed Prescription Monitoring Program Total 45 MME/Day Incomplete MEDICATIONS (INSTRUCTIONS) LAST TAKEN Active ??amlodipine [Norvasc] ??5 mgPODAILY ??aspirin ??81 mgPODAILY ??atorvastatin [Lipitor] ??80 mgPOHS##0 ??cholecalciferol (vitamin D3) 50 mcg (2,000 unit) capsule ??2,000 unitPODAILY ??fluoxetine ??40 mgPOQDAY##0 ??latanoprost [Xalatan] ??1 drpophthalmic (eye)BEDTIME ??meloxicam ??15 mgPODAILY ??oxycodone ??5 [id number], Moderate (4-6)#40 tabs 45 MME/Day ??oxycodone ??5 [id number], Moderate (4-6)#40 tabs 0 MME/Day ??pantoprazole [Protonix] ??40 mgPOBID Allergies adhesive (ADHESIVE) RASH, BLISTERS amoxicillin (AMOXICILLIN) N/V, diarrhea clavulanic acid (CLAVULANIC ACID) N/V, diarrhea valdecoxib (VALDECOXIB) ULCER celecoxib (CELECOXIB) Upset stomach, VOMITING hydrocodone (HYDROCODONE) Stomach upset, VOMITING NSAIDS (Non-Steroidal Anti-Inflamma (NSAIDS (NON-STEROIDAL ANTI-INFLAMMA) They don't work at all Problems ? 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 Resp 15? O2 Sat 95? Delivery Room Air? Diagnostics Reports Crystal Branch M??81??F??1940 ? Allergy/Adv: adhesive, amoxicillin, clavulanic acid, valdecoxib, celecoxib, hydrocodone, NSAIDS (Non-Steroidal Anti-Inflamma (More??) Close Head CT (Signed) Nick Ludwig - 02/23/22 Chest CTA (Signed) Nick Ludwig - 02/23/22 Abdomen/Pelvis CT (Signed) LudwigNick cunningham - 02/23/22 Shoulder X-Ray (Signed) Michael Stahl - 02/23/22 Chest X-Ray (Signed) Michael Stahl - 02/23/22 Telemetry Strips 10/28/21 Telemetry Strips 10/28/21 Shoulder X-Ray (Signed) Michael Stahl - 10/28/21 Shoulder MRI (Signed) Kike Herring - 09/23/21 Shoulder MRI (Signed) Kike Herring - 09/23/21 Breast Biopsy Ultrasound (Signed) Ana,Keyanna - 05/27/20 Mammogram Diagnostic (Signed) AnaKeyanna - 05/27/20 Mammogram Diagnostic (Signed) LudwigNick - 05/13/20 Breast Ultrasound (Signed) Nick Ludwig - 05/13/20 Carotid Doppler Study (Signed) Kevin Barclay - 07/03/19 Carotid Doppler Study (Signed) Chanel Dunaway - 11/22/18 Abdomen/Pelvis CT (Addendum) Timur Wall - 07/03/18 Telemetry Strips 05/15/18 Neck CTA (Addendum) Kevin Barclay - 03/17/18 Lumbar Spine MRI (Signed) Kevin Barclay - 12/23/17 Launch?Image [address] [address] [address] Scan Report Signed Patient: Crystal Branch MR#: [id number] : 1940 Acct:[id number] Age/Sex: 81 / F Date of Service: 02/23/22 Loc: ED Accession Number: [id number] ?? Procedure: CT angio chest PE protocol Ordering Provider: Osorio Craft D.O. PROCEDURE:? CT ANGIO CHEST PE PROTOCOL ? INDICATIONS:? chest pain, SOB, travel ? TECHNIQUE:? After the administration of intravenous contrast, 2 mm thick sections acquired from the pulmonary apices to the posterior costophrenic angles.? 3-dimensional maximum intensity projection (MIP) coronal and sagittal reformats were then acquired through the thorax.? For radiation dose reduction, the following was used:? automated exposure control, adjustment of mA and/or kV according to patient size.? ? COMPARISON:? [facility], CT, CHEST/ABD/PEL WITH CONTRAST, 08/17/2017, 11:08. ? FINDINGS:? Image quality:? There is metallic streak artifact from patient's right shoulder prosthesis limiting evaluation.? ? Pulmonary arteries:? Pulmonary arteries are normal in size, and demonstrate no intraluminal filling defects to suggest central pulmonary embolism.? ? Lower Neck: No lymphadenopathy by size criteria. Thyroid:? Visualized thyroid demonstrates no discrete nodules. Axillae: No lymphadenopathy by size criteria. Chest Wall:? Unremarkable.? Bones:? A right shoulder prosthesis is present with associated metallic streak artifact.? Visualized osseous structures demonstrate no suspicious lesions. ? Lungs and Airways:? No acute consolidation.? There is mild dependent atelectasis.? There is a 0.4 cm right middle lobe pulmonary nodule on series 5, image 173 which appears unchanged from the prior study. The trachea and central airways are patent. Pleura: No pneumothorax or pleural effusions.? ? Heart: Heart size is normal.? No pericardial effusion. Thoracic Vessels: The thoracic aorta is normal in size.? Mediastinum and Jess: No lymphadenopathy by size criteria. Esophagus: No wall thickening.? There is a moderate-sized hiatal hernia. ? Abdomen:? Visualized upper abdominal solid organs appear normal in the early arterial phase of enhancement.? ? IMPRESSION:? ? 1. No evidence of pulmonary embolism. ? 2. No acute airspace consolidation.? ? ? Dictated by: Nick Ludwig M.D. on 02/23/2022 at 20:33 ? ? Approved by: Nick Ludwig M.D. on 02/23/2022 at 20:37 ? CT scan - abdomen/pelvis: Radiologist's Impression: Allergy/Adv: adhesive, amoxicillin, clavulanic acid, valdecoxib, celecoxib, hydrocodone, NSAIDS (Non-Steroidal Anti-Inflamma (More??) Close Head CT (Signed) Nick Ludwig - 02/23/22 Chest CTA (Signed) Nick Ludwig - 02/23/22 Abdomen/Pelvis CT (Signed) Nick Ludwig - 02/23/22 Shoulder X-Ray (Signed) Michael Stahl - 02/23/22 Chest X-Ray (Signed) Promise Stahle - 02/23/22 Telemetry Strips 10/28/21 Telemetry Strips 10/28/21 Shoulder X-Ray (Signed) Favio,Michael - 10/28/21 Shoulder MRI (Signed) Kike Herring - 09/23/21 Shoulder MRI (Signed) Kike Herring - 09/23/21 Breast Biopsy Ultrasound (Signed) Keyanna Perez - 05/27/20 Mammogram Diagnostic (Signed) Keyanna Perez - 05/27/20 Mammogram Diagnostic (Signed) Nick Ludwig - 05/13/20 Breast Ultrasound (Signed) Nick Ludwig - 05/13/20 Carotid Doppler Study (Signed) Kevin Barclay - 07/03/19 Carotid Doppler Study (Signed) DunawayChanel - 11/22/18 Abdomen/Pelvis CT (Addendum) Timur Wall - 07/03/18 Telemetry Strips 05/15/18 Neck CTA (Addendum) Kevin Barclay - 03/17/18 Lumbar Spine MRI (Signed) Kevin Barclay - 12/23/17 Launch?Image [address] [address] [address] Scan Report Signed Patient: Crystal Branch MR#: [id number] : 1940 Acct:[id number] Age/Sex: 81 / F Date of Service: 02/23/22 Loc: ED Accession Number: [id number] ?? Procedure: CT abdomen pelvis w con Ordering Provider: Osorio Craft D.O. PROCEDURE:? CT ABDOMEN PELVIS W CON ? INDICATIONS:? severe abdominal pain, N/V/D, hx colon CA ? TECHNIQUE:? After the administration of oral and IV contrast, axial sections were acquired from the lung bases to the pubic symphysis.? Coronal and sagittal reformats were performed.? For radiation dose reduction, the following was used:? automated exposure control, adjustment of mA and/or kV according to patient size. ? COMPARISON:? [facility], CT, CT ABDOMEN PELVIS W CON, 07/03/2018, 9:46. ? FINDINGS:? Image quality:? Excellent.? ? Lung bases:? There is minimal dependent atelectasis.? ? Heart:? Heart is normal in size.? There is a moderate-sized hiatal hernia. ? ? ABDOMEN: Liver:? There is mild focal fatty infiltration in the anterior left hepatic lobe. Gallbladder:? Within normal limits without calcified gallstones.? ? Biliary ducts:? No biliary ductal dilatation.? ? Pancreas:? Unremarkable.? ? Spleen:? Normal in size.? ? Adrenal Glands:? No adrenal nodules.? ? Kidneys and Ureters:? No hydronephrosis.? A simple cyst is redemonstrated within the inferior pole of the right kidney.? ? Stomach and Bowel:? Postsurgical changes are redemonstrated status post right hemicolectomy.? Stomach and small bowel loops are normal in caliber and wall thickness.? There is mild fluid distention throughout the residual colon with scattered air- fluid levels suggestive of a gastroenteritis.? A few short segments of mild colonic wall thickening are demonstrated in the sigmoid colon without associated obstruction.? Findings are suggestive of peristaltic activity but an intramural mass cannot be excluded.? Colonic diverticulosis is present without acute diverticulitis. Peritoneum:? No abnormal intraperitoneal fluid.? No free air.? ? Ventral Wall: ? No hernia.? Abdominal Nodes:? No retroperitoneal or mesenteric adenopathy by size criteria.? Vessels:? Aorta and inferior vena cava are normal in size.? ? PELVIS: Pelvic Organs:? Unremarkable.? ? Bladder:? Unremarkable.? ? Pelvic Nodes: No enlarged lymph nodes.? Miscellaneous: No inguinal hernias are seen. ? ? ? Bones:? A mild inferior endplate compression deformity of the T12 vertebral body appears unchanged.? Visualized osseous structures demonstrate no suspicious focal lesions. ? IMPRESSION:? ? 1. No evidence of bowel obstruction. ? 2. Mild fluid distention and scattered air-fluid levels throughout the residual colon suggestive of a gastroenteritis or ileus.? Postsurgical changes are redemonstrated status post right hemicolectomy. ? 3. Multiple segments of mild colonic wall thickening in the sigmoid colon are suggestive of peristaltic activity but an intramural mass cannot be excluded.? Consider follow-up colonoscopy. ? 4. Moderate-sized hiatal hernia.? ? Dictated by: Nick Ludwig M.D. on 02/23/2022 at 20:38 ? ? Approved by: Ncik Ludwig M.D. on 02/23/2022 at 20:45 ? Discharge Plan Departure Patient Disposition: Home Clinical Impression: Acute UTI, Dizziness, Diarrhea Instructions: DI for Urinary Tract Infection (UTI) Activity Restrictions/Additional Instructions: *You have been diagnosed with [urinary tract infection. As we discussed the remainder of your history and physical exam as well as labs and imaging are very reassuring and there is no evidence of any other other significant abnormality that would require a specific intervention] *What to do: *Please continue to take your regular medications as directed. [x ] New medication prescriptions sent to your pharmacy: [ [facility]] [ ] New medication written as a paper prescription [ ] No new medications given *Please follow up with your primary care provider in 2-3 days, call for an appointment. Let them know you were seen in the Emergency Department and that we ask that you be seen in follow up. We will electronically transmit a record of today's note if your PCP is in our system *Return to Emergency Department if you should have any new, worsening or concerning symptoms, such as [fever greater than 101 F, shaking chills, wor sening pain, persistent vomiting or other bothersome symptoms] Prescriptions: New sulfamethoxazole-trimethoprim [Bactrim DS] 800-160 mg tablet 1 tab PO BID 5 Days Qty: 10 0RF No Action fluoxetine 20 MG capsule 40 mg PO QDAY Qty: 0 atorvastatin [Lipitor] 40 MG tablet 80 mg PO HS Qty: 0 cholecalciferol (vitamin D3) 2,000 unit capsule 2,000 unit PO DAILY oxycodone 5 mg Tablet 5 mg PO Q4H PRN (Reason: Pain, Moderate (4-6)) Qty: 40 0RF oxycodone 5 mg Tablet 5 mg PO Q4HR PRN (Reason: Pain, Moderate (4-6)) Qty: 40 0RF aspirin 81 mg Tablet,Delayed Release (Dr/Ec) 81 mg PO DAILY amlodipine [Norvasc] 5 mg Tablet 5 mg PO DAILY latanoprost [Xalatan] 0.005 % Drops 1 drp OPHTHALMIC (EYE) BEDTIME pantoprazole [Protonix] 40 mg Tablet,Delayed Release (Dr/Ec) 40 mg PO BID meloxicam 15 mg Tablet 15 mg PO DAILY Referrals: Aaron Desai MD [Primary Care Provider] - Visit Report Forms: Patient Portal/API
--- NOTE | 2022-02-23 19:45 | DI.CT.S_ITS ---
PROCEDURE: CT ANGIO CHEST PE PROTOCOL INDICATIONS: chest pain, SOB, travel TECHNIQUE: After the administration of intravenous contrast, 2 mm thick sections acquired from the pulmonary apices to the posterior costophrenic angles. 3-dimensional maximum intensity projection (MIP) coronal and sagittal reformats were then acquired through the thorax. For radiation dose reduction, the following was used: automated exposure control, adjustment of mA and/or kV according to patient size. COMPARISON: [facility], CT, CHEST/ABD/PEL WITH CONTRAST, 08/17/2017, 11:08. FINDINGS: Image quality: There is metallic streak artifact from patient's right shoulder prosthesis limiting evaluation. Pulmonary arteries: Pulmonary arteries are normal in size, and demonstrate no intraluminal filling defects to suggest central pulmonary embolism. Lower Neck: No lymphadenopathy by size criteria. Thyroid: Visualized thyroid demonstrates no discrete nodules. Axillae: No lymphadenopathy by size criteria. Chest Wall: Unremarkable. Bones: A right shoulder prosthesis is present with associated metallic streak artifact. Visualized osseous structures demonstrate no suspicious lesions. Lungs and Airways: No acute consolidation. There is mild dependent atelectasis. There is a 0.4 cm right middle lobe pulmonary nodule on series 5, image 173 which appears unchanged from the prior study. The trachea and central airways are patent. Pleura: No pneumothorax or pleural effusions. Heart: Heart size is normal. No pericardial effusion. Thoracic Vessels: The thoracic aorta is normal in size. Mediastinum and Jess: No lymphadenopathy by size criteria. Esophagus: No wall thickening. There is a moderate-sized hiatal hernia. Abdomen: Visualized upper abdominal solid organs appear normal in the early arterial phase of enhancement. IMPRESSION: 1. No evidence of pulmonary embolism. 2. No acute airspace consolidation. Dictated by: Nick Ludwig M.D. on 02/23/2022 at 20:33 Approved by: Nick Ludwig M.D. on 02/23/2022 at 20:37
--- NOTE | 2022-02-23 19:45 | DI.CT.S_ITS ---
PROCEDURE: CT ABDOMEN PELVIS W CON INDICATIONS: severe abdominal pain, N/V/D, hx colon CA TECHNIQUE: After the administration of oral and IV contrast, axial sections were acquired from the lung bases to the pubic symphysis. Coronal and sagittal reformats were performed. For radiation dose reduction, the following was used: automated exposure control, adjustment of mA and/or kV according to patient size. COMPARISON: [facility], CT, CT ABDOMEN PELVIS W CON, 07/03/2018, 9:46. FINDINGS: Image quality: Excellent. Lung bases: There is minimal dependent atelectasis. Heart: Heart is normal in size. There is a moderate-sized hiatal hernia. ABDOMEN: Liver: There is mild focal fatty infiltration in the anterior left hepatic lobe. Gallbladder: Within normal limits without calcified gallstones. Biliary ducts: No biliary ductal dilatation. Pancreas: Unremarkable. Spleen: Normal in size. Adrenal Glands: No adrenal nodules. Kidneys and Ureters: No hydronephrosis. A simple cyst is redemonstrated within the inferior pole of the right kidney. Stomach and Bowel: Postsurgical changes are redemonstrated status post right hemicolectomy. Stomach and small bowel loops are normal in caliber and wall thickness. There is mild fluid distention throughout the residual colon with scattered air-fluid levels suggestive of a gastroenteritis. A few short segments of mild colonic wall thickening are demonstrated in the sigmoid colon without associated obstruction. Findings are suggestive of peristaltic activity but an intramural mass cannot be excluded. Colonic diverticulosis is present without acute diverticulitis. Peritoneum: No abnormal intraperitoneal fluid. No free air. Ventral Wall: No hernia. Abdominal Nodes: No retroperitoneal or mesenteric adenopathy by size criteria. Vessels: Aorta and inferior vena cava are normal in size. PELVIS: Pelvic Organs: Unremarkable. Bladder: Unremarkable. Pelvic Nodes: No enlarged lymph nodes. Miscellaneous: No inguinal hernias are seen. Bones: A mild inferior endplate compression deformity of the T12 vertebral body appears unchanged. Visualized osseous structures demonstrate no suspicious focal lesions. IMPRESSION: 1. No evidence of bowel obstruction. 2. Mild fluid distention and scattered air-fluid levels throughout the residual colon suggestive of a gastroenteritis or ileus. Postsurgical changes are redemonstrated status post right hemicolectomy. 3. Multiple segments of mild colonic wall thickening in the sigmoid colon are suggestive of peristaltic activity but an intramural mass cannot be excluded. Consider follow-up colonoscopy. 4. Moderate-sized hiatal hernia. Dictated by: Nick Ludwig M.D. on 02/23/2022 at 20:38 Approved by: Nick Ludwig M.D. on 02/23/2022 at 20:45
--- NOTE | 2022-02-23 19:45 | DI.CT.S_ITS ---
PROCEDURE: CT HEAD/BRAIN WO CON INDICATIONS: dizziness and falls TECHNIQUE: Noncontrast 4.5 mm thick angled axial sections acquired from the foramen magnum to the vertex, with coronal and sagittal reformats. For radiation dose reduction, the following was used: automated exposure control, adjustment of mA and/or kV according to patient size. COMPARISON: [facility], CT, HEAD WITHOUT CONTRAST, 02/13/2017, 14:54. FINDINGS: Image quality: Excellent. CSF spaces: Basal cisterns are patent. No extra-axial fluid collections. There is moderate cerebral volume loss, with resultant ventricular and sulcal prominence. Brain: No intracranial hemorrhage, mass, or mass effect. There are subcortical, periventricular and deep white matter hypodensities consistent with mild chronic small vessel ischemic changes. The lisa-white matter junction appears preserved. There is intracranial internal carotid artery atherosclerosis. Skull and face: Calvarium and visualized facial bones appear intact, without suspicious lesions. Sinuses: Visualized sinuses and mastoids are clear. IMPRESSION: 1. No acute intracranial abnormality. 2. Moderate cerebral volume loss and mild chronic white matter small vessel ischemic changes. Dictated by: Nick Ludwig M.D. on 02/23/2022 at 20:30 Approved by: Nick Ludwig M.D. on 02/23/2022 at 20:33
[2022-02-23 19:55] VITALS: BP 103/53; PULSE 78; RESP 18; O2SAT 95
[2022-02-23] MEDS: SODIUM CHLORIDE 0.9% 1,000 ML 1000 ML IV (19:59)
[2022-02-23 20:50] VITALS: BP 107/58; PULSE 70; RESP 15; O2SAT 95
[2022-02-23 21:10] LABS: Bacteria Urine Many (>30); Hyaline Casts Urine 5-10/LPF; RBC Urine 5-10/HPF (0-5/HPF); Squamous Epithelial Cell Urine 5-10 /HPF (0-5/HPF); Transitional Epi Cells Urine 1-5/HPF (0-5/HPF); WBC Urine 5-10/HPF (0-5/HPF)
[2022-02-23] MEDS: TRIMETH/SULFA 160/800 (DS) TABLET 1 TAB PO (21:56)
== END 2022-02-23 22:01 | disposition home or self-care (01) ==
PROVIDERS: Emergency Medicine; Emergency Provider Emergency Medicine; Family Provider Psychiatry & Neurology Neurology; PCP Family Medicine
DX: N39.0 Urinary tract infection, site not specified (principal); R42 Dizziness and giddiness; R19.7 Diarrhea, unspecified; R07.9 Chest pain, unspecified; R10.9 Unspecified abdominal pain
CPT/HCPCS: 36415; 70450; 71045; 71275; 73030; 74177; 80053; 81003; 81015; 82550; 83690; 83735; 84484; 85025; 87086; 93005; 93010; 96360; 99284; Q9967

== ENCOUNTER → 2022-03-18 14:01 | Outpatient (CLI) | payer MEDICARE, OTHER, SELFPAY ==
[2021-10-28 17:44] VITALS: BMI 30.2
--- NOTE | 2022-03-18 | DI.CT.S_ITS ---
PROCEDURE: CT UE RT WO CON INDICATIONS: CLOSED NONDISPLACED FRACTURE OF ACROMIAL PROCESS TECHNIQUE: Noncontrast 1-1.5 mm thick sections acquired from the acromioclavicular joint to the inferior scapula, with coronal and sagittal reformatting. COMPARISON: [facility], CR, XR SHOULDER 2+ VIEWS BILATERAL, 10/01/2021, 12:13. [facility], CR, XR SHOULDER RT 1V, 10/28/2021, 16:48. [facility], CR, XR SHOULDER 2+ VIEWS RIGHT, 12/14/2021, 11:10. [facility], CR, XR SHOULDER RT MIN 2V, 02/23/2022, 16:17. FINDINGS: Image quality: Diagnostic. Significant beam hardening artifacts from shoulder prosthesis is seen. Bones: Patient is status post reverse right shoulder arthroplasty. Shoulder alignment is anatomic. No gross hardware loosening or failure is noted. Well corticated osseous fragment medial to the glenohumeral joint is noted likely represent postsurgical changes. There is acute to subacute appearing fracture involving dorsal and lateral aspect of acromion with minimal inferior and medial displacement of the fractured fragment. Moderate acromioclavicular joint osteoarthritic changes are seen with joint space narrowing, and inferior osteophyte formation depressing the musculotendinous junction of supraspinatus. No other fracture or dislocation. No suspicious bony lesion. Soft tissues: There is no gross full-thickness rotator cuff tendon rupture. No significant joint effusion. Mild supraspinatus muscle atrophy is seen. No abnormal soft tissue calcifications. IMPRESSION: 1. Minimally displaced fracture involving posterior and lateral portion of right acromion as described above. Moderate acromioclavicular joint osteoarthritis. 2. Prior right shoulder reverse arthroplasty with anatomic shoulder alignment. Well corticated fragment inferior and medial to glenohumeral joint likely represent postsurgical changes. 3. No gross full-thickness rotator cuff tendon rupture. Mild supraspinatus muscle atrophy. No gross acute abnormal soft tissue calcifications. Dictated by: Swapnil Cartwright M.D. on 03/18/2022 at 16:33 Approved by: Swapnil Cartwright M.D. on 03/18/2022 at 16:38
== END ==
PROVIDERS: Family Provider Psychiatry & Neurology Neurology; PCP Family Medicine; Referring Provider Orthopaedic Surgery; Visit Provider Orthopaedic Surgery
DX: S42.124A Nondisplaced fracture of acromial process, right shoulder, initial encounter for closed fracture (principal); M19.011 Primary osteoarthritis, right shoulder; X58.XXXA Exposure to other specified factors, initial encounter
CPT/HCPCS: 73200